=== PATIENT | female | born 1985 | race Caucasian/White ===

== ENCOUNTER 2016-12-26 00:07 | Emergency (ER) | payer BC ==
[~2016-12-26] VITALS: Ht 170.2 cm; Wt 149.7 kg
[~2016-12-26 00:07] MED LIST: BSP5T PO; DICY20TA57 PO; FLUO40CA PO; PRM25T PO
[2016-12-26] MEDS ORDERED: NS IV 1000 ML 1,000 ML IV ONE (00:13)
[2016-12-26] MEDS ORDERED: fentaNYL INJECTION 100 MCG/2 ML AMP IVP STA (00:13)
--- OUTSIDE RECORDS SUMMARY | 2016-12-26 00:13 | XMS REPORT ---
Author Author PADMA MANZANO [facility] eClinicalWorks Address Unknown Phone Unavailable Care Team Providers Care Multi Share Program Coordinator Name Role Phone PADMA MANZANO CP Unavailable Allergies No Known Allergies Problems Problem Type Condition Code Onset Dates Condition Status Problem Family history of diabetes mellitus V18.0 Active Problem Obesity, unspecified 278.00 Active Problem Counseling on substance use and abuse V65.42 Active Problem Nondependent tobacco use disorder 305.1 Active Problem Anxiety state, unspecified 300.00 Active Problem Other general counseling and advice for contraceptive management V25.09 Active Medications No Known Medications Results No Known Results Summary Purpose eClinicalWorks Submission
[2016-12-26] MEDS ORDERED: HYOSCYAMINE 0.125 MG (LEVSIN) TAB SL ONE (00:15)
[2016-12-26] MEDS ORDERED: ONDANSETRON 4 MG/2 ML (SDV) Z0FRAN IVP ONE (00:15)
[2016-12-26 00:37] LABS: BASOPHILS % (AUTO) 0 % (0-10); EOSINOPHILS # (AUTO) 0.1 10^3/uL (0.0-0.3); EOSINOPHILS % (AUTO) 1 % (0-10); LYMPHOCYTES # (AUTO) 1.4 X 10^3 (1.0-4.0); LYMPHOCYTES % (AUTO) 9 % (12-44); MEAN CORPUSCULAR HEMOGLOBIN 26 PG (25-34); MEAN CORPUSCULAR HGB CONC 33 G/DL (32-36); MEAN CORPUSCULAR VOLUME 79 FL (80-99); MONOCYTES # (AUTO) 0.7 X 10^3 (0.0-1.0); MONOCYTES % (AUTO) 5 % (0-12); NEUTROPHILS # (AUTO) 13.2 X 10^3 (1.8-7.8); NEUTROPHILS % (AUTO) 86 % (42-75); PLATELET COUNT 532 10^3/uL (130-400); RED CELL DISTRIBUTION WIDTH 15.1 % (10.0-14.5); WHITE BLOOD COUNT 15.5 10^3/uL (4.3-11.0)
[2016-12-26] MEDS ORDERED: PROMETHAZINE INJ 25 MG/ML (PHENERGAN) AMP IVP STA (00:46)
--- NOTE | 2016-12-26 00:46 | ED General ---
General Chief Complaint: Abdominal/GI Problems Stated Complaint: VOMITING,NAUSEA,DIARRHEA Source of Information: Patient Exam Limitations: No Limitations History of Present Illness Time Seen by Provider: 00:10 Initial Comments Here with report of nausea, vomiting and diarrhea that started at about 830 p.m. last night and has persisted until now. She reports vomiting at least 10 times. She states that she has watery diarrhea. No blood in her vomit or stool. Overall has body aches and abdominal cramping. Timing/Duration: 4-6 Hours Severity: Moderate Associated Systoms: No Chest Pain, No Fever/Chills, Nausea/VomitingNo Weakness Allergies and Home Medications Allergies Coded Allergies: Latex (Verified Allergy, Unknown, 01/28/09) Pertussis Vaccine,Adsorbed (Verified Allergy, Unknown, 01/29/09) Home Medications Buspirone Hcl 5 Mg Tablet 10 MG PO BID (Reported) Dicyclomine Hcl 20 Mg Tablet #14 1 EACH PO QID PRN Prescribed by: RYAN MOORE MD on 09/10/09 1121 Fluoxetine Hcl 40 Mg Capsule 1 EACH PO DAILY (Reported) Promethazine HCl 25 Mg Tablet #12 25 MG PO Q8H PRN PRN NAUSEA/VOMITING Prescribed by: LAVELL MORGAN on 12/26/16 0209 Promethazine Hcl 25 Mg Tablet #14 1 TAB PO QID PRN NAUSEA Prescribed by: RYAN MOORE MD on 09/10/09 1121 Constitutional: see HPINo chills, No fever EENTM: no symptoms reported Respiratory: no symptoms reported Cardiovascular: no symptoms reported Gastrointestinal: see HPI abdominal pain diarrhea nausea vomiting Genitourinary: no symptoms reported Musculoskeletal: see HPI Skin: no symptoms reported All Other Systems Reviewed Negative Unless Noted: Yes Past Rertyvs-Hxbxsa-Owbbpr Hx Patient Social History Alcohol Use: Occasionally Uses Recreational Drug Use: No Smoking Status: Former Smoker Type Used: Cigarettes Recent Foreign Travel: No Contact w/Someone Who Travel: No Recent Hopitalizations: No Surgeries HX Surgeries: Yes (metal plate in Lt.leg when broken) Surgeries: Section Respiratory Hx Respiratory Disorders: No Cardiovascular Hx Cardiac Disorders: No Neurological Hx Neurological Disorders: No Reproductive System Hx Reproductive Disorders: No Genitourinary Hx Genitourinary Disorders: No Gastrointestinal Hx Gastrointestinal Disorders: No Musculoskeletal Hx Musculoskeletal Disorders: No Endocrine Hx Endocrine Disorders: No HEENT HX ENT Disorders: No Cancer Hx Cancer: No Psychosocial Hx Psychiatric Problems: Yes Behavioral Health Disorders: Anxiety, Depression Integumentary HX Skin/Integumentary Disorder: No Blood Transfusions Hx Blood Disorders: No Reviewed Nursing Assessment Reviewed/Agree w Nursing PMH: Yes Physical Exam Vital Signs Vital Sign - Last 12Hours 12/26/16 00:09 Temp 97.6 Pulse 99 Resp 20 B/P 139/100 Pulse Ox 98 O2 Delivery Room Air Capillary Refill : General Appearance: No Apparent Distress WD/WN HEENT: PERRL/EOMI Pharynx Normal Neck: Non Tender Supple Respiratory: Lungs Clear Normal Breath Sounds Cardiovascular: Regular Rate, Rhythm No Murmur Gastrointestinal: Non Tender Soft Back: Normal Inspection No CVA Tenderness No Vertebral Tenderness Extremity: Non Tender No Calf Tenderness Neurologic/Psychiatric: Alert Oriented x3 Skin: Normal Color Warm/Dry Progress/Results/Core Measures Results/Orders Lab Results Laboratory Tests Test 12/26/16 00:22 Range/Units Alanine Aminotransferase (ALT/SGPT) 16 0-55 U/L Albumin 3.9 3.2-4.5 G/DL Alkaline Phosphatase 79 40-136 U/L Anion Gap 15 H 5-14 MMOL/L Aspartate Amino Transf (AST/SGOT) 14 5-34 U/L BUN/Creatinine Ratio 14 Band Neutrophils 2 % Basophils # (Auto) 0.0 0.0-0.1 10^3/uL Basophils (%) (Auto) 0 0-10 % Blood Morphology Comment NORMAL Blood Urea Nitrogen 13 7-18 MG/DL Calcium Level 9.2 8.5-10.1 MG/DL Carbon Dioxide Level 17 L 21-32 MMOL/L Chloride Level 109 H 98-107 MMOL/L Creatinine 0.91 0.60-1.30 MG/DL Eosinophils # (Auto) 0.1 0.0-0.3 10^3/uL Eosinophils (%) (Auto) 1 0-10 % Estimat Glomerular Filtration Rate > 60 Glucose Level 173 H 70-105 MG/DL Hematocrit 39 35-52 % Hemoglobin 12.7 11.5-16.0 G/DL Lymphocytes # (Auto) 1.4 1.0-4.0 X 10^3 Lymphocytes % (Manual) 10 % Lymphocytes (%) (Auto) 9 L 12-44 % Mean Corpuscular Hemoglobin 26 25-34 PG Mean Corpuscular Hemoglobin Concent 33 32-36 G/DL Mean Corpuscular Volume 79 L 80-99 FL Mean Platelet Volume 9.0 7.4-10.4 FL Monocytes # (Auto) 0.7 0.0-1.0 X 10^3 Monocytes % (Manual) 3 % Monocytes (%) (Auto) 5 0-12 % Neutrophils # (Auto) 13.2 H 1.8-7.8 X 10^3 Neutrophils % (Manual) 85 % Neutrophils (%) (Auto) 86 H 42-75 % Platelet Count 532 H 130-400 10^3/uL Potassium Level 4.1 3.6-5.0 MMOL/L Red Blood Count 4.90 4.35-5.85 10^6/uL Red Cell Distribution Width 15.1 H 10.0-14.5 % Sodium Level 141 135-145 MMOL/L Total Bilirubin 0.9 0.1-1.0 MG/DL Total Protein 7.6 6.4-8.2 G/DL White Blood Count 15.5 H 4.3-11.0 10^3/uL My Orders Orders-LAVELL MORGAN MD Saline Lock/Iv-Start (12/26/16 00:13) Ns Iv 1000 Ml (Sodium Chloride 0.9%) (12/26/16 00:13) Ondansetron Injection (Zofran Injectio (12/26/16 00:15) Hyoscyamine Sl Tablet (Levsin Sl Tablet) (12/26/16 00:15) Fentanyl Injection (Sublimaze Injection (12/26/16 00:13) Cbc With Automated Diff (12/26/16 00:13) Comprehensive Metabolic Panel (12/26/16 00:13) Manual Differential (12/26/16 00:22) Promethazine Injection (Phenergan Injec (12/26/16 00:46) Ketorolac Injection (Toradol Injection) (12/26/16 02:06) Medications Given in ED Current Medications Medications Dose Ordered Sig/Nura Route Start Time Stop Time Status Last Admin Dose Admin Hyoscyamine Sulfate 0.125 mg ONCE ONCE SL 12/26/16 00:15 12/26/16 00:16 DC 12/26/16 00:39 0.125 MG Ondansetron HCl 8 mg ONCE ONCE IVP 12/26/16 00:15 12/26/16 00:16 DC 12/26/16 00:39 8 MG Sodium Chloride 1,000 ml @ 0 mls/hr Q0M ONCE IV 12/26/16 00:13 12/26/16 00:15 DC 12/26/16 00:39 1,000 MLS/HR Vital Signs/I&O Vital Sign - Last 12Hours 12/26/16 00:09 Temp 97.6 Pulse 99 Resp 20 B/P 139/100 Pulse Ox 98 O2 Delivery Room Air Progress Note : Progress Note Seen and evaluated. IV, labs, normal saline 1 L bolus, Zofran 8 mg IV, fentanyl 25 g IV and Levsin 0.125 mg by mouth. Monitor patient repeat vomiting noted. Phenergan 25 mg IV. 0200: Improved overall. Toradol 30 mg IV for abdominal wall/muscle pain. Discharged home with return precautions. Patient verbalize understanding instructions and agreement with plan. Departure Impression Impression: Primary Impression: Nausea, vomiting and diarrhea Disposition: HOME, SELF-CARE Condition: Stable Departure-Patient Inst. Decision time for Depature: 02:08 Referrals: LYLY FLORENCE DO (PCP) Primary Care Physician Patient Instructions: Acute Abdomen (Belly Pain), Adult (DC), Diarrhea in Adolescents and Adults, Nausea and Vomiting, Adult Add. Discharge Instructions: All discharge instructions reviewed with patient and/or family. Voiced understanding. Clear liquid diet for 24 hours and then advance as tolerated. Take small sips frequently to prevent dehydration. Take medications as directed. Follow-up with your Dr. today for recheck and further evaluation as needed. Return for worse pain, fever, vomiting, weakness, breathing problems or other concerns as needed. Scripts Promethazine HCl (Promethazine Tablet)25 Mg Adukgs06 Mg PO Q8H PRN NAUSEA/ VOMITING #12 TAB Ref 0 Prov:LAVELL MORGAN MD 12/26/16 LAVELL MORGAN MD Dec 26, 2016 00:46 LAVELL MORGAN MD Dec 26, 2016 00:46
[2016-12-26 00:58] LABS: ALANINE AMINOTRANSFERASE 16 U/L (0-55); ALBUMIN 3.9 G/DL (3.2-4.5); ANION GAP 15 MMOL/L (5-14); ASPARTATE AMINO TRANSFERASE 14 U/L (5-34); BILIRUBIN,TOTAL 0.9 MG/DL (0.1-1.0); BLOOD UREA NITROGEN 13 MG/DL (7-18); BUN/CREATININE RATIO 14; CALCIUM 9.2 MG/DL (8.5-10.1); CARBON DIOXIDE 17 MMOL/L (21-32); CHLORIDE 109 MMOL/L (98-107); CREATININE SERUM 0.91 MG/DL (0.60-1.30); GFR ESTIMATED > 60; GLUCOSE 173 MG/DL (70-105); POTASSIUM 4.1 MMOL/L (3.6-5.0); SODIUM 141 MMOL/L (135-145); TOTAL PROTEIN 7.6 G/DL (6.4-8.2)
[2016-12-26 01:12] LABS: BAND NEUTROPHILS 2 %; LYMPHOCYTES % (MANUAL) 10 %; NEUTROPHILS % (MANUAL) 85 %
[2016-12-26] MEDS ORDERED: KETOROLAC 30 MG/ML VIAL IVP STA (02:06)
[2016-12-26] MEDS ORDERED: PROM25TA14 PO (02:09)
[2016-12-26] MEDS ORDERED: RX-ONDANSETRON 4 MG ODT (ZOFRAN) PPK #4 PO STA (02:10)
[2016-12-26 02:37] VITALS: BP 137/76
== END 2016-12-26 02:37 | disposition home or self-care (01) ==
LOC: EDUNIT# 00:07 → ER 00:09
DX: R11.2 Nausea with vomiting, unspecified (principal); R19.7 Diarrhea, unspecified
CPT/HCPCS: 36415; 80053; 85007; 85027; 96361; 96374; 96375

== ENCOUNTER 2018-03-16 21:11 | Emergency (ER) | payer SELFPAY ==
[~2018-03-16] VITALS: Ht 170.2 cm; Wt 144.2 kg
[~2018-03-16 21:11] MED LIST changes: +PROM25TA14 PO
--- OUTSIDE RECORDS SUMMARY | 2018-03-16 21:15 | XMS REPORT ---
Author Author VIOLETTA SHORT Organization eClinicalWorks Address Unknown Phone Unavailable Care Team Providers Care Borough Coordinator Name Role Phone VIOLETTA SHORT CP Unavailable Allergies No Known Allergies Problems Problem Type Condition Code Onset Dates Condition Status Problem Family history of diabetes mellitus V18.0 Active Problem Obesity, unspecified 278.00 Active Problem Counseling on substance use and abuse V65.42 Active Problem Nondependent tobacco use disorder 305.1 Active Problem Anxiety state, unspecified 300.00 Active Problem Other general counseling and advice for contraceptive management V25.09 Active Medications Medication Code System Code Instructions Start Date End Date Status Dosage Omeprazole [facility] [address]-95 20 MG Orally Once a day May 03, 2015 1 capsule Results No Known Results Summary Purpose eClinicalWorks Submission
--- OUTSIDE RECORDS SUMMARY | 2018-03-16 21:15 | XMS REPORT ---
Author Author PADMA MANZANO [facility] eClinicalWorks Address Unknown Phone Unavailable Care Team Providers Care Primary School Teacher Name Role Phone PADMA MANZANO CP Unavailable [...]
--- OUTSIDE RECORDS SUMMARY | 2018-03-16 21:16 | XMS REPORT ---
Author Author VIOLETTA SHORT [facility] Address [address] [place] [address] Care Team Providers Care Tv News Director Name Role Phone VIOLETTA SHORT Unavailable PROBLEMS Type Condition ICD9-CM Code [id number] Code Onset Dates Condition Status SNOMED Code Problem Anemia, unspecified type D64.9 Active 851101872 Problem Acquired hypothyroidism E03.9 Active 061966474 Problem Fatigue, unspecified type R53.83 Active 80326764 Problem Other seasonal allergic rhinitis J30.2 Active 141057052 Problem Blood pressure elevated without history of HTN R03.0 Active 898977527 Problem Depression with anxiety F41.8 Active 846323694 Problem Long-term use of high-risk medication Z79.899 Active 604644803 Problem Gastroesophageal reflux disease without esophagitis K21.9 Active 726864013 ALLERGIES Unknown Allergies SOCIAL HISTORY No smoking Hx information available PLAN OF CARE VITAL SIGNS MEDICATIONS Medication Instructions Dosage Frequency Start Date End Date Duration Status BusPIRone HCl 10 mg Orally Twice a day as needed 1 tablet 30 days Active Fluoxetine HCl 40 mg Orally 2 times a day 1 capsule 12h 30 days Active RESULTS No Results PROCEDURES No Known procedures IMMUNIZATIONS No Known Immunizations
--- OUTSIDE RECORDS SUMMARY | 2018-03-16 21:16 | XMS REPORT ---
Author Author VIOLETTA SHORT Organization eClinicalWorks Address Unknown Phone Unavailable Care Team Providers Care Pigment Supplier Name Role Phone VIOLETTA SHORT CP Unavailable Allergies, Adverse Reactions, Alerts Substance Reaction Event Type N.K.D.A. Info Not Available Non Drug Allergy Problems Problem Type Condition ICD-9 Code Onset Dates Condition Status Problem Family history of diabetes mellitus V18.0 Active Problem Obesity, unspecified 278.00 Active Problem Counseling on substance use and abuse V65.42 Active Problem Nondependent tobacco use disorder 305.1 Active Assessment Lumbar back pain 724.2 Active Problem Anxiety state, unspecified 300.00 Active Problem Other general counseling and advice for contraceptive management V25.09 Active Medications Medication Code System Code Instructions Start Date End Date Status Dosage Omeprazole [facility] [address]-52 20 MG Orally Once a day May 03, 2015 1 capsule Baclofen [facility] [address]-30 10 MG Orally Once a day at hs May 21, 2015 Jul 26, 2015 1 tablet with food or milk Diclofenac Sodium [facility] [address]-99 50 MG Orally Twice a day May 21, 2015 Aug 25, 2015 1 tablet Fluoxetine HCl [facility] [address]-04 40 MG Orally 2 times a day 1 capsule BusPIRone HCl [facility] [address]-10 10 MG Orally Twice a day as needed 1 tablet Procedures Procedure Coding System Code Date Office Visit, Est Pt., Level 3 CPT-4 71698 Jun 26, 2015 Vital Signs Date/Time: Jun 26, 2015 Temperature 97.8 F Weight 304.1 lbs Height 67 in BMI 47.62 Index Blood Pressure Diastolic 78 mmHg Blood Pressure Systolic 126 mmHg Cardiac Monitoring Heart Rate 84 bpm Results No Known Results Summary Purpose eClinicalWorks Submission
--- OUTSIDE RECORDS SUMMARY | 2018-03-16 21:16 | XMS REPORT ---
Author Author SELIN HIDALGO Organization [facility] Address [address] [place] [address] Care Team Providers Care Aircraft Systems Repairer Name Role Phone SELIN HIDALGO Unavailable PROBLEMS Type Condition ICD9-CM Code [id number] Code Onset Dates Condition Status SNOMED Code Problem Acquired hypothyroidism E03.9 Active 147008571 Problem Depression with anxiety F41.8 Active 145978335 Problem Anemia, unspecified type D64.9 Active 569960760 Problem Acute bilateral low back pain with right-sided sciatica M54.41 Active 567478752 Problem Fatigue, unspecified type R53.83 Active 74274976 Problem Gastroesophageal reflux disease without esophagitis K21.9 Active 336211683 Problem Blood pressure elevated without history of HTN R03.0 Active 060952357 Problem Other seasonal allergic rhinitis J30.2 Active 347333950 Problem Long-term use of high-risk medication Z79.899 Active 723734036 ALLERGIES No Known Allergies ENCOUNTERS Encounter Location Date Diagnosis [place] [id number] [place] [address] 98109- 1451 Jan, BMI 50.0-59.9, adult Z68.43 ; Depression with anxiety F41.8 ; Acquired hypothyroidism E03.9 and Acute bilateral low back pain with right- sided sciatica M54.41 [place] [id number] [place] [address] 54776- 4024 Dec, [place] [id number] [place] [address] 57664- 3865 Dec, Bilateral low back pain, unspecified chronicity, with sciatica presence unspecified M54.5 [place] [id number] [place] [address] 16905- 0247 Dec, Bilateral low back pain, unspecified chronicity, with sciatica presence unspecified M54.5 and Depression with anxiety F41.8 [facility] [id number] [place] [address] 38950- 8781 13 Dec, 2017 Depression with anxiety F41.8 [facility] [id number] [place] [address] 80703 -6017 14 Oct, 2017 BMI 50.0-59.9, adult Z68.43 ; Other viral agents as the cause of diseases classified elsewhere B97.89 and Acute upper respiratory infection, unspecified J06.9 [place] [id number] [place] [address] 80640- 6769 Aug, Acquired hypothyroidism E03.9 and Anemia, unspecified type D64.9 [facility] [id number] [place] [address] 63991 -0186 Jul, Acute nonseasonal allergic rhinitis due to other allergen J30.89 [place] [id number] [place] [address] 77648- 0998 Jun, [place] [id number] [place] [address] 09444- 9390 Jun, Acquired hypothyroidism E03.9 [place] [id number] [place] [address] 87869- 0067 Jun, Acquired hypothyroidism E03.9 and Fatigue, unspecified type R53.83 [place] [id number] [place] [address] 42655- 5583 Jun, Depression with anxiety F41.8 ; Gastroesophageal reflux disease without esophagitis K21.9 and Fatigue, unspecified type R53.83 [place] [id number] [place] [address] 49688- 9455 May, [place] [id number] [place] [address] 05384- 4756 Dec, [place] [id number] [place] [address] 17957- 9561 Dec, Depression with anxiety F41.8 and Gastroesophageal reflux disease without esophagitis K21.9 [facility] [id number] [place] [address] 36661- 7850 Nov, Depression with anxiety F41.8 [facility] [id number] [place] [address] 86367- 0629 Sep, Acute maxillary sinusitis, recurrence not specified J01.00 [facility] [address] 71497- 1626 Jun, [facility] [id number] [place] [address] [id number] Jun, Dental examination Z01.20 and Dental caries K02.9 [place] [address] 05120- 0668 Apr, Depression with anxiety F41.8 ; Other seasonal allergic rhinitis J30.2 ; Gastroesophageal reflux disease without esophagitis K21.9 and Long-term use of high-risk medication Z79.899 [facility] [id number] [place] [address] 14746 -5035 Apr, Acute otitis externa of right ear, unspecified type H60.501 and Foreign body of ear, left, initial encounter T16.2XXA [place] [id number] [place] [address] 94080- 0157 March, Acute non-recurrent maxillary sinusitis J01.00 and Depression with anxiety F41.8 [facility] [id number] [place] [address] 79988- 5740 Dec, [facility] [id number] [place] [address] 64179- 1011 Oct, Depression with anxiety F41.8 ; Blood pressure elevated without history of HTN R03.0 and Gastroesophageal reflux disease without esophagitis K21.9 [facility] [id number] [place] [address] 93580- 4917 Oct, [facility] [address] [place] [address]- 1178 Sep, Upper respiratory disease J39.9 [facility] [id number] [address] 2886 Aug, [facility] [address] [facility] [id number], [place] [address] 3659 Jun, Lumbar back pain 724.2 [facility] [id number] [place] [address] 76984- 4418 May, Low back strain 847.2 [facility] [address] [facility] [id number] [place] [address] 93235- 1218 May, Dysthymia 300.4 and Heart burn 787.1 [facility] [address] [facility] [id number], [place] [address]- 7365 Apr, [facility] [id number] [place] [address] 06770- 2532 Jan, [facility] [address] [id number] [address] 1510 Jan, [facility] [address] [place] [address] 92117- 2306 Dec, [facility] [address] [id number] [address]- 0113 Dec, [facility] [id number] [address]- 9196 Dec, [facility] [address] [facility] [id number], [place] [address]- 3157 Dec, [facility] [address] [facility] [id number] 7119 Sep, [facility] [address] [facility] [id number], [place] [address]- 4945 Sep, [facility] [address] [facility] [id number], [place] [address] 1700 Aug, [facility] [place] [facility] [address] [id number] [place] [address]- 0974 23 Aug, 2014 [facility] [place] [facility] [address] [id number] [place] [address]- 2588 16 Aug, 2014 [facility] [place] [facility] [address] [id number] [place] [address] 16 Aug, 2014 [facility] [place] [facility] [address] [id number] [place] [address]- 5558 15 Aug, 2014 [facility] [place] [facility] [address] [id number] [place] [address]- 6051 15 Aug, 2014 [facility] [place] [facility] [address] [id number] [place] [address]- 6611 17 Jul, 2014 [facility] [place] [facility] [address] [id number] [place] [address]- 1448 17 Jul, 2014 [facility] [place] [facility] [address] [id number] [place] [address]- 7281 08 Jul, 2014 [facility] [place] [facility] [address] [id number] [place] [address]- 2846 08 Jul, 2014 [facility] [place] [facility] [address] [id number] [place] [address]- 9941 Jun, [facility] [place] [facility] [address] [id number] [place] [address]- 7803 Jun, [facility] [place] [facility] [address] [id number] [place] [address]- 9605 Jun, [facility] [place] [facility] [address] [id number] [place] [address]- 9049 Jun, [facility] [place] [facility] [address] [id number] [place] [address]- 8663 Apr, [facility] [place] [facility] [address] [id number] [place] [address]- 3295 Apr, [facility] [place] [facility] [address] [id number], [place] [address]- 5664 March, [facility] [address] [id number] [place] [address]- 5374 March, [facility] [place] [facility] [address] [id number] [place] [address]- 6712 Jan, [facility] [place] [facility] [address] [id number] [place] [address]- 9906 Jan, [facility] [place] [facility] [address] [id number] [place] [address]- 8431 Dec, [facility] [place] [facility] [address] [id number] [place] [address]- 8945 Dec, [facility] [place] [facility] [address] [id number] [place] [address]- 7049 Dec, [facility] [place] [facility] [address] [facility] [id number] [place] [address]- 3214 Dec, [facility] [place] [facility] [address] [id number] [place] [address]- 8456 Oct, [facility] [place] [facility] [address] [id number] [place] [address]- 5961 Oct, [facility] [place] [facility] [address] [facility] [id number] [place] [address]- 7587 Oct, [facility] [place] [facility] [address] [facility] [id number], [place] [address]- 6227 Oct, [facility] [place] [facility] [address] [id number], [place] [address]- 0848 Aug, [facility] [place] [facility] [address] [id number] [place] [address]- 9890 Aug, [facility] [place] [facility] [address] [facility] [id number], [place] [address]- 5857 Jun, [facility] [place] [facility] [address] [facility] [id number], [place] [address]- 6993 Jun, [facility] [place] [facility] [address] [id number] [place] [address]- 2505 Jun, [facility] [place] [facility] [address] [id number] [place] [address]- 6193 May, [facility] [place] [facility] [address] [id number] [place] [address]- 2777 March, [facility] [place] [facility] [address] [id number] [place] [address]- 8994 March, [facility] [place] [facility] [address] [id number] [place] [address]- 0930 Oct, [facility] [place] [facility] [address] [id number] [place] [address]- 8384 Oct, [facility] [place] [facility] [address] [id number] [place] [address]- 6503 Oct, [facility] [place] [facility] [address] [id number] [place] [address]- 8804 Oct, [facility] [place] [facility] [address] [id number] [place] [address]- 0279 Sep, [facility] [place] [facility] [address] [id number] [place] [address]- 7943 Sep, [facility] [place] [facility] [address] [id number] [place] [address]- 5712 Aug, [facility] [place] [facility] [address] [id number] [place] [address]- 6436 Aug, [facility] [place] [facility] [address] [id number] [place] [address]- 4526 Jun, [facility] [place] [facility] [address] [id number] [place] [address]- 5204 Jun, [facility] [place] [facility] [address] [id number] [place] [address]- 3238 Dec, [facility] [place] [facility] [address] [id number] [place] [address]- 9206 Nov, [facility] [address] [facility] [id number], [place] [address]- 2546 Oct, [facility] [address] [facility] [id number], [place] [address] 2546 Aug, [facility] [address] [facility] [id number], [place] [address]- 2546 Aug, [facility] [address] [facility] [id number], [place] [address]- 2546 Dec, IMMUNIZATIONS No Known Immunizations SOCIAL HISTORY Never Assessed REASON FOR VISIT Stuffy tingling nose, facial pain started Thursday Celina PLAN OF CARE VITAL SIGNS Height 67 in 2017-07-22 Weight 318.0 lbs 2017-07-22 Temperature 98.1 degrees Fahrenheit 2017-07-22 Heart Rate 84 bpm 2017-07-22 Respiratory Rate 20 2017-07-22 BMI 49.80 kg/m2 2017-07-22 Blood pressure systolic 128 mmHg 2017-07-22 Blood pressure diastolic 76 mmHg 2017-07-22 MEDICATIONS Medication Instructions Dosage Frequency Start Date End Date Duration Status Omeprazole 20 mg Orally Once a day 1 capsule 24h Active Multivitamin Adults - Active Zyrtec Allergy 10 MG Orally Once a day 1 tablet 24h Active Fluoxetine HCl 40 mg Orally 2 times a day 1 capsule 12h 30 days Active PredniSONE 20 mg Orally Once a day 2 tablets 24h 20 Jul, 2017 25 Jul, 2017 05 days Active Vitamin C 250 MG Orally Once a day 1 tablet 24h Jun, 30 day(s) Active Iron 325 (65 Fe) MG Orally Once a day 1 tablet 24h Jun, 30 day( s) Active Levothyroxine Sodium 25 MCG Orally Once a day 1 tablet on an empty stomach in the morning 24h Jun, 30 day(s) Active BusPIRone HCl 10 mg Orally Twice a day as needed 1 tablet 30 days Active RESULTS No Results PROCEDURES No Known procedures INSTRUCTIONS MEDICATIONS ADMINISTERED No Known Medications MEDICAL (GENERAL) HISTORY Type Description Date Medical History anxiety Medical History dysthymia (depressive neurosis) primary Surgical History section 2008 Surgical History orthopedic surgery-fx of left leg, pt has metal plate 2005 Hospitalization History Hospitalization for surgery only
--- OUTSIDE RECORDS SUMMARY | 2018-03-16 21:17 | XMS REPORT ---
Author Author VIOLETTA SHORT Organization [employer] Address Unknown Phone Unavailable Care Team Providers Care Canvas Cutter Name Role Phone VIOLETTA SHORT CP Unavailable Allergies, Adverse Reactions, Alerts Substance Reaction Event Type N.K.D.A. Info Not Available Non Drug Allergy Problems Problem Type Condition Code Onset Dates Condition Status Problem Long-term use of high-risk medication Z79.899 Active Problem Depression with anxiety F41.8 Active Problem Other seasonal allergic rhinitis J30.2 Active Assessment Acute maxillary sinusitis, recurrence not specified J01.00 Active Problem Blood pressure elevated without history of HTN R03.0 Active Problem Gastroesophageal reflux disease without esophagitis K21.9 Active Medications Medication Code System Code Instructions Start Date End Date Status Dosage Azithromycin [facility] [address]-39 250 MG Orally Once a day Sep 23, 2016 Sep 30, 2016 2 tablets on the first day, then 1 tablet daily for 6 days Benzonatate [facility] [address]-71 100 MG Orally Three times a day prn Sep 23, 2016 Sep 30, 2016 1 capsule as needed Fluoxetine HCl [facility] [address]-80 40 mg Orally 2 times a day 1 capsule BusPIRone HCl [facility] [address]-35 10 MG Orally Twice a day as needed 1 tablet Flonase [facility] [address]-65 50 MCG/ACT Nasally Once a day March 19, 2016 1 spray in each nostril Omeprazole [facility] [address]-80 20 mg Orally Once a day May 03, 2015 1 capsule Procedures Procedure Coding System Code Date Office Visit, Est Pt., Level 3 CPT-4 10210 Sep 23, 2016 Vital Signs Date/Time: Sep 23, 2016 Cardiac Monitoring Heart Rate 90 bpm Weight 318.5 lbs Height 67 in BMI 49.88 Index Blood Pressure Diastolic 74 mmHg Blood Pressure Systolic 138 mmHg Results No Known Results Summary Purpose [employer] Submission
--- OUTSIDE RECORDS SUMMARY | 2018-03-16 21:17 | XMS REPORT ---
Author Author PADMA MANZANO [facility] [employer] Address Unknown Phone Unavailable Care Team Providers Care Tai Chi Instructor Name Role Phone PADMA MANZANO CP Unavailable Allergies, Adverse Reactions, Alerts Substance Reaction Event Type N.K.D.A. Info Not Available Non Drug Allergy Problems Problem Type Condition Code Onset Dates Condition Status Problem Family history of diabetes mellitus V18.0 Active Problem Obesity, unspecified 278.00 Active Problem Counseling on substance use and abuse V65.42 Active Problem Nondependent tobacco use disorder 305.1 Active Assessment Upper respiratory disease J39.9 Active Problem Anxiety state, unspecified 300.00 Active Problem Other general counseling and advice for contraceptive management V25.09 Active Medications Medication Code System Code Instructions Start Date End Date Status Dosage Afrin 12 Hour [facility] 53476-38567 0.05 % Nasally Twice a day 2 drops as needed Fluoxetine HCl [facility] [address]-47 40 MG Orally 2 times a day 1 capsule Zithromax Z-William [facility] [address]-18 250 MG Orally Once a day Sep 20, 2015 Sep 25, 2015 2 tablets on the first day, then 1 tablet daily for 4 days Tylenol Severe Allergy [facility] [address]-37 12.5-500 MG Orally every 6 hrs 2 tablets as needed BusPIRone HCl [facility] [address]-11 10 MG Orally Twice a day as needed 1 tablet Procedures Procedure Coding System Code Date Office Visit, Est Pt., Level 3 CPT-4 52355 Sep 20, 2015 Vital Signs Date/Time: Sep 20, 2015 Temperature 97.0 F Weight 306 lbs Height 67 in BMI 47.92 Index Blood Pressure Diastolic 78 mmHg Blood Pressure Systolic 110 mmHg Cardiac Monitoring Heart Rate 84 bpm Results No Known Results Summary Purpose [employer] Submission
--- OUTSIDE RECORDS SUMMARY | 2018-03-16 21:17 | XMS REPORT ---
Author Author VIOLETTA SHORT Organization [facility] Address [address] [place] [address] Care Team Providers Care Tax Senior Associate Name Role Phone VIOLETTA SHORT Unavailable PROBLEMS Type Condition ICD9-CM Code FRV76-BI Code Onset Dates Condition Status SNOMED Code Problem Anemia, unspecified type D64.9 Active 242015107 Problem Acquired hypothyroidism E03.9 Active 238244272 Problem Fatigue, unspecified type R53.83 Active 76935864 Problem Other seasonal allergic rhinitis J30.2 Active 051691418 Problem Blood pressure elevated without history of HTN R03.0 Active 983421931 Problem Depression with anxiety F41.8 Active 713406503 Problem Long-term use of high-risk medication Z79.899 Active 662872638 Problem Gastroesophageal reflux disease without esophagitis K21.9 Active 359821655 ALLERGIES No Information ENCOUNTERS Encounter Location Date Diagnosis [place] [id number] [place] [address] 62852- 6614 24 Jan, 2018 [facility] [id number] [place] [address] 34224- 1418 16 Dec, 2017 [facility] [id number] [place] [address] 16547- 1806 16 Dec, 2017 Bilateral low back pain, unspecified chronicity, with sciatica presence unspecified M54.5 [facility] [id number] [place] [address] 33895- 8732 14 Dec, 2017 Bilateral low back pain, unspecified chronicity, with sciatica presence unspecified M54.5 and Depression with anxiety F41.8 [facility] [id number] [place] [address] 24619- 6867 13 Dec, 2017 Depression with anxiety F41.8 [facility] [id number] [place] [address] 05122 -4008 Oct, BMI 50.0-59.9, adult Z68.43 ; Other viral agents as the cause of diseases classified elsewhere B97.89 and Acute upper respiratory infection, unspecified J06.9 [place] [id number] [place] [address] 06497- 8033 Aug, Acquired hypothyroidism E03.9 and Anemia, unspecified type D64.9 [facility] [id number] [place] [address] 68253 -1007 Jul, Acute nonseasonal allergic rhinitis due to other allergen J30.89 [place] [id number] [place] [address] 43471- 2974 Jun, [place] [id number] [place] [address] 40544- 2275 Jun, Acquired hypothyroidism E03.9 [place] [id number] [place] [address] 19093- 8314 Jun, Acquired hypothyroidism E03.9 and Fatigue, unspecified type R53.83 [place] [id number] [place] [address] 70204- 1432 Jun, Depression with anxiety F41.8 ; Gastroesophageal reflux disease without esophagitis K21.9 and Fatigue, unspecified type R53.83 [place] [id number] [place] [address] 52765- 9874 May, [place] [id number] [place] [address] 26689- 8773 Dec, [place] [id number] [place] [address] 51168- 3476 Dec, Depression with anxiety F41.8 and Gastroesophageal reflux disease without esophagitis K21.9 [place] [id number] [place] [address] 40336- 3119 Nov, Depression with anxiety F41.8 [place] [id number] [place] [address] 03859- 8878 Sep, Acute maxillary sinusitis, recurrence not specified J01.00 [facility] [address] 15506- 1230 Jun, [facility] [address] [id number] Jun, Dental examination Z01.20 and Dental caries K02.9 [facility] [address] 89140- 2808 Apr, Depression with anxiety F41.8 ; Other seasonal allergic rhinitis J30.2 ; Gastroesophageal reflux disease without esophagitis K21.9 and Long-term use of high-risk medication Z79.899 [facility] [address] 07884 -8300 Apr, Acute otitis externa of right ear, unspecified type H60.501 and Foreign body of ear, left, initial encounter T16.2XXA [facility] [address] 22088- 3479 March, Acute non-recurrent maxillary sinusitis J01.00 and Depression with anxiety F41.8 [place] [id number] [place] [address] 32202- 5118 Dec, [place] [address] 07484- 1525 Oct, Depression with anxiety F41.8 ; Blood pressure elevated without history of HTN R03.0 and Gastroesophageal reflux disease without esophagitis K21.9 [facility] [address] 17187- 3365 Oct, [place] [address] 50954- 3290 Sep, Upper respiratory disease J39.9 [place] [address] 18986- 7969 Aug, [facility] [address] [id number] [place] [address] 6275 Jun, Lumbar [facility] pain [facility]24.2 [facility] [address] [id number] [place] [address] 4769 May, Low back strain 847.2 [facility] [address] [id number] [place] [address] 9754 May, Dysthymia 300.4 and Heart burn 787.1 [facility] [address] [id number] [place] [address] 4404 Apr, [facility] [address] [id number] [place] [address]- 2928 Jan, [facility] [address] [id number] [place] [address]- 0798 Jan, [facility] [address] [id number] [place] [address]- 3598 Dec, [facility] [address] [id number] [place] [address]- 7768 Dec, [facility] [address] [id number] [place] [address]- 4186 Dec, [facility] [address] [facility] [id number] [place] [address]- 2341 Dec, [facility] [address] [id number] [place] [address]- 4684 Sep, [facility] [address] [id number] [place] [address] 1201 Sep, [facility] [address] [id number] [place] [address] Aug, [facility] [address] [id number] [place] [address] Aug, [facility] [address] [id number] [place] [address]- 7113 16 Aug, 2014 [facility] [place] [facility] [address] [id number] [place] [address]- 6785 16 Aug, 2014 [facility] [place] [facility] [address] [id number] [place] [address]- 5720 15 Aug, 2014 [facility] [place] [facility] [address] [id number] [place] [address]- 4446 15 Aug, 2014 [facility] [place] [facility] [address] [id number] [place] [address]- 9964 17 Jul, 2014 [facility] [place] [facility] [address] [id number] [place] [address]- 4582 17 Jul, 2014 [facility] [place] [facility] [address] [id number] [place] [address]- 8715 08 Jul, 2014 [facility] [place] [facility] [address] [id number] [place] [address]- 8987 Jul, [facility] [place] [facility] [address] [id number] [place] [address]- 1100 Jun, [facility] [place] [facility] [address] [id number] [place] [address]- 6188 Jun, [facility] [place] [facility] [address] [id number] [place] [address]- 5258 Jun, [facility] [place] [facility] [address] [id number] [place] [address]- 4812 Jun, [facility] [place] [facility] [address] [id number] [place] [address]- 5736 Apr, [facility] [place] [facility] [address] [id number] [place] [address]- 1134 Apr, [facility] [place] [facility] [address] [id number] [place] [address]- 7490 March, [facility] [place] [facility] [address] [id number] [place] [address]- 1428 March, [facility] [place] [facility] [address] [id number] [place] [address]- 8790 Jan, [facility] [place] [facility] [address] [id number] [place] [address]- 3595 Jan, [facility] [place] [facility] [address] [id number] [place] [address]- 6284 Dec, [facility] [place] [facility] [address] [id number] [place] [address]- 9563 Dec, [facility] [place] [facility] [address] [id number] [place] [address]- 4591 Dec, [facility] [place] [facility] [address] [id number] [place] [address]- 9896 Dec, [facility] [place] [facility] [address] [id number] [place] [address]- 8955 Oct, [facility] [place] [facility] [address] [id number] [place] [address]- 2509 Oct, [facility] [place] [facility] [address] [id number] [place] [address]- 7337 Oct, [facility] [place] [facility] [address] [id number] [place] [address]- 2319 Oct, [facility] [place] [facility] [address] [id number] [place] [address]- 1351 Aug, [facility] [place] [facility] [address] [id number] [place] [address]- 2697 Aug, [facility] [place] [facility] [address] [id number] [place] [address]- 3793 Jun, [facility] [place] [facility] [address] [id number] [place] [address]- 2169 Jun, [facility] [place] [facility] [address] [id number] [place] [address]- 8918 Jun, [facility] [place] [facility] [address] [id number] [place] [address]- 5679 May, [facility] [place] [facility] [address] [id number] [place] [address] 2541 March, [facility] [address] [id number] [place] [address]- 8396 March, [facility] [address] [id number] [place] [address]- 2546 Oct, [facility] [place] [facility] [address] [id number] [place] [address] 2546 Oct, [facility] [address] [id number] [place] [address]- 2544 Oct, [facility] [place] [facility] [address] [id number] [place] [address]- 5096 Oct, [facility] [address] [id number] [place] [address]- 4899 Sep, [facility] [address] [id number] [place] [address]- 1274 Sep, [facility] [address] [id number] [place] [address]- 2836 Aug, [facility] [address] [id number] [place] [address]- 3233 Aug, [facility] [address] [id number] [place] [address]- 8086 Jun, [facility] [place] [facility] [address] [id number] [place] [address]- 2546 Jun, [facility] [place] [facility] [address] [id number] [place] [address]- 9893 Dec, [facility] [place] [facility] [address] [id number] [place] [address]- 2546 Nov, [facility] [place] [facility] [address] [id number] [place] [address]- 2546 Oct, [facility] [place] [facility] [address] [id number] [place] [address]- 9964 Aug, [facility] [address] [facility] [id number] [place] [address]- 3196 Aug, [facility] [address] [facility] [id number] [place] [address]- 8338 10 Dec, 2010 IMMUNIZATIONS No Known Immunizations SOCIAL HISTORY Never Assessed REASON FOR VISIT Medication refill request PLAN OF CARE VITAL SIGNS MEDICATIONS Medication Instructions Dosage Frequency Start Date End Date Duration Status BusPIRone HCl 10 mg Orally Twice a day as needed 1 tablet 30 Active RESULTS No Results PROCEDURES No Known procedures INSTRUCTIONS MEDICATIONS ADMINISTERED No Known Medications MEDICAL (GENERAL) HISTORY Type Description Date Medical History anxiety Medical History dysthymia (depressive neurosis) primary Surgical History section 2008 Surgical History orthopedic surgery-fx of left leg, pt has metal plate 2005 Hospitalization History Hospitalization for surgery only
--- OUTSIDE RECORDS SUMMARY | 2018-03-16 21:17 | XMS REPORT ---
Author Author VIOLETTA SHORT Organization [facility] Address [address] [place] [address] Care Team Providers Care Hammer Repairer Name Role Phone VIOLETTA SHORT Unavailable PROBLEMS Type Condition ICD9-CM Code LAP71-PB Code Onset Dates Condition Status SNOMED Code Problem Acquired hypothyroidism E03.9 Active 082566965 Problem Depression with anxiety F41.8 Active 682658059 Problem Anemia, unspecified type D64.9 Active 175252492 Problem Acute bilateral low back pain with right-sided sciatica M54.41 Active 775675851 Problem Fatigue, unspecified type R53.83 Active 74320624 Problem Gastroesophageal reflux disease without esophagitis K21.9 Active 099740753 Problem Blood pressure elevated without history of HTN R03.0 Active 115774799 Problem Other seasonal allergic rhinitis J30.2 Active 940650956 Problem Long-term use of high-risk medication Z79.899 Active 774867563 ALLERGIES No Known Allergies ENCOUNTERS Encounter Location Date Diagnosis [place] [id number] [place] [address] 28844- 6789 24 Jan, 2018 BMI 50.0-59.9, adult Z68.43 ; Depression with anxiety F41.8 ; Acquired hypothyroidism E03.9 and Acute bilateral low back pain with right- sided sciatica M54.41 [facility] [id number] [place] [address] 06212- 6436 Dec, [place] [id number] [place] [address] 14530- 3306 16 Dec, 2017 Bilateral low back pain, unspecified chronicity, with sciatica presence unspecified M54.5 [place] [id number] [place] [address] 14915- 7008 14 Dec, 2017 Bilateral low back pain, unspecified chronicity, with sciatica presence unspecified M54.5 and Depression with anxiety F41.8 [facility] [id number] [place] [address] 22158- 1901 13 Dec, 2017 Depression with anxiety F41.8 [facility] [id number] [place] [address] 75684 -9166 14 Oct, 2017 BMI 50.0-59.9, adult Z68.43 ; Other viral agents as the cause of diseases classified elsewhere B97.89 and Acute upper respiratory infection, unspecified J06.9 [place] [id number] [place] [address] 55290- 3117 Aug, Acquired hypothyroidism E03.9 and Anemia, unspecified type D64.9 [facility] [id number] [place] [address] 78740 -5110 Jul, Acute nonseasonal allergic rhinitis due to other allergen J30.89 [place] [id number] [place] [address] 78587- 2891 Jun, [place] [id number] [place] [address] 25015- 1161 Jun, Acquired hypothyroidism E03.9 [place] [id number] [place] [address] 93579- 2184 Jun, Acquired hypothyroidism E03.9 and Fatigue, unspecified type R53.83 [place] [id number] [place] [address] 71181- 5690 Jun, Depression with anxiety F41.8 ; Gastroesophageal reflux disease without esophagitis K21.9 and Fatigue, unspecified type R53.83 [place] [id number] [place] [address] 37463- 6037 May, [place] [id number] [place] [address] 61063- 8786 Dec, [place] [address] 34240- 7623 Dec, Depression with anxiety F41.8 and Gastroesophageal reflux disease without esophagitis K21.9 [place] [id number] [place] [address] 97222- 2572 Nov, Depression with anxiety F41.8 [facility] [id number] [place] [address] 64785- 9371 Sep, Acute maxillary sinusitis, recurrence not specified J01.00 [place] [address] 92877- 0461 Jun, [facility] [address] [id number] Jun, Dental examination Z01.20 and Dental caries K02.9 [place] [address] 03957- 9650 Apr, Depression with anxiety F41.8 ; Other seasonal allergic rhinitis J30.2 ; Gastroesophageal reflux disease without esophagitis K21.9 and Long-term use of high-risk medication Z79.899 [facility] [id number] [place] [address] 97063 -9357 Apr, Acute otitis externa of right ear, unspecified type H60.501 and Foreign body of ear, left, initial encounter T16.2XXA [place] [id number] [place] [address] 22932- 6116 March, Acute non-recurrent maxillary sinusitis J01.00 and Depression with anxiety F41.8 [place] [id number] [place] [address] 06940- 6446 Dec, [place] [address] 99604- 0270 Oct, Depression with anxiety F41.8 ; Blood pressure elevated without history of HTN R03.0 and Gastroesophageal reflux disease without esophagitis K21.9 [facility] [id number] [place] [address] 18369- 3829 Oct, [place] [address] [id number] [place] [address] 8666 Sep, Upper respiratory disease J39.9 [facility] [address] [id number] [place] [address] 5250 Aug, [facility] [address] [id number] [place] [address] 4049 Jun, Lumbar back pain 724.2 [facility] [id number] [place] [address] 81551- 1787 May, Low back strain 847.2 [facility] [id number] [place] [address] 93831- 9651 May, Dysthymia 300.4 and Heart burn 787.1 [facility] [address] [facility] [id number] [place] [address]- 2337 Apr, [facility] [address] [id number] [place] [address] 0759 Jan, [facility] [address] [facility] [id number] [place] [address]- 3002 Jan, [facility] [address] [facility] [id number] [place] [address]- 0963 Dec, [facility] [address] [facility] [id number] [place] [address]- 9390 Dec, [facility] [address] [id number] [place] [address]- 9544 Dec, [facility] [address] [facility] [id number] [place] [address]- 7899 Dec, [facility] [address] [facility] [id number] [place] [address]- 4826 Sep, [facility] [address] [id number] [place] [address]- 2190 Sep, [facility] [address] [id number] [place] [address] 1929 Aug, [facility] [place] [facility] [address] [id number] [place] [address]- 5846 23 Aug, 2014 [facility] [place] [facility] [address] [id number] [place] [address]- 5504 16 Aug, 2014 [facility] [place] [facility] [address] [id number] [place] [address]- 4216 16 Aug, 2014 [facility] [place] [facility] [address] [id number] [place] [address]- 9737 15 Aug, 2014 [facility] [place] [facility] [address] [id number] [place] [address]- 3163 15 Aug, 2014 [facility] [place] [facility] [address] [id number] [place] [address]- 4215 17 Jul, 2014 [facility] [place] [facility] [address] [id number] [place] [address]- 7861 17 Jul, 2014 [facility] [place] [facility] [address] [id number] [place] [address]- 0949 08 Jul, 2014 [facility] [place] [facility] [address] [id number] [place] [address]- 3699 08 Jul, 2014 [facility] [place] [facility] [address] [id number] [place] [address]- 6876 Jun, [facility] [place] [facility] [address] [id number] [place] [address]- 6664 Jun, [facility] [place] [facility] [address] [id number] [place] [address]- 2085 Jun, [facility] [place] [facility] [address] [id number] [place] [address]- 9350 Jun, [facility] [place] [facility] [address] [id number] [place] [address]- 3906 Apr, [facility] [place] [facility] [address] [id number] [place] [address]- 6756 Apr, [facility] [place] [facility] [address] [id number] [place] [address]- 2019 March, [facility] [address] [id number] [place] [address]- 1301 March, [facility] [address] [id number] [place] [address]- 0878 Jan, [facility] [address] [id number] [place] [address]- 8163 Jan, [facility] [address] [id number] [place] [address]- 1323 Dec, [facility] [address] [id number] [place] [address]- 7045 Dec, [facility] [address] [id number] [place] [address]- 5189 Dec, [facility] [address] [id number] [place] [address]- 5487 Dec, [facility] [address] [id number] [place] [address]67 Oct, [facility] [address] [id number] [place] [address]- 6720 Oct, [facility] [address] [id number] [place] [address]- 2071 Oct, [facility] [place] [facility] [address] [id number] [place] [address]- 6299 Oct, [facility] [address] [id number] [place] [address]- 4820 Aug, [facility] [place] [facility] [address] [id number] [place] [address]- 2544 Aug, [facility] [place] [facility] [address] [id number] [place] [address]- 2546 Jun, [facility] [address] [id number] [place] [address]- 3367 Jun, [facility] [place] [facility] [address] [id number] [place] [address]- 1017 Jun, [facility] [place] [facility] [address] [id number] [place] [address]- 1380 May, [facility] [place] [facility] [address] [id number] [place] [address]- 6511 March, [facility] [place] [facility] [address] [id number] [place] [address]- 6221 March, [facility] [place] [facility] [address] [id number] [place] [address]- 9993 Oct, [facility] [place] [facility] [address] [id number] [place] [address]- 4361 Oct, [facility] [place] [facility] [address] [id number] [place] [address]- 9375 Oct, [facility] [place] [facility] [address] [id number] [place] [address]- 2043 Oct, [facility] [place] [facility] [address] [id number] [place] [address]- 0230 Sep, [facility] [place] [facility] [address] [id number] [place] [address]- 7443 Sep, [facility] [place] [facility] [address] [id number] [place] [address]- 7535 Aug, [facility] [place] [facility] [address] [id number] [place] [address]- 7125 Aug, [facility] [place] [facility] [address] [id number] [place] [address]- 7530 Jun, [facility] [place] [facility] [address] [id number] [place] [address]- 1486 Jun, [facility] [place] [facility] [address] [id number] [place] [address]- 0834 Dec, [facility] [place] [facility] [address] [id number] [place] [address]- 6329 Nov, [facility] [address] [facility] [id number] [place] [address]- 2415 Oct, [facility] [address] [id number] [place] [address]- 3584 Aug, [facility] [address] [id number] [place] [address]- 9403 Aug, [facility] [address] [facility] [id number] [place] [address]- 9803 Dec, IMMUNIZATIONS No Known Immunizations SOCIAL HISTORY Never Assessed REASON FOR VISIT Thyroid f/u-PASCUAL Velazquez PLAN OF CARE Activity Details Follow Up 4 weeks lab 3 months office visit Reason:thyroid VITAL SIGNS Height 67 in 2017-08-04 Weight 320 lbs 2017-08-04 Temperature 98.7 degrees Fahrenheit 2017-08-04 Heart Rate 94 bpm 2017-08-04 Respiratory Rate 20 2017-08-04 BMI 50.11 kg/m2 2017-08-04 Blood pressure systolic 110 mmHg 2017-08-04 Blood pressure diastolic 60 mmHg 2017-08-04 MEDICATIONS Medication Instructions Dosage Frequency Start Date End Date Duration Status Omeprazole 20 mg Orally Once a day 1 capsule 24h Active Multivitamin Adults - Active Levothyroxine Sodium 25 MCG Orally Once a day 1 tablet on an empty stomach in the morning 24h Jun, Active Zyrtec Allergy 10 MG Orally Once a day 1 tablet 24h Active Iron 325 (65 Fe) MG Orally Once a day 1 tablet 24h Jun, Active Vitamin C 250 MG Orally Once a day 1 tablet 24h Jun, Active Fluoxetine HCl 40 mg Orally 2 times a day 1 capsule 12h 30 days Active BusPIRone HCl 10 mg Orally Twice a day as needed 1 tablet 30 days Active RESULTS Name Result Date Reference Range CBC 2017-08-04 WBC 8.8 3.4-10.8 RBC 4.38 3.77-5.28 Hemoglobin 11.2 11.1-15.9 Hematocrit 35.5 34.0-46.6 MCV 81 79-97 MCH 25.6 26.6-33.0 MCHC 31.5 31.5-35.7 RDW 18.3 12.3-15.4 Platelets 386 150-379 Neutrophils 65 Not Estab. Lymphs 28 Not Estab. Monocytes 5 Not Estab. Eos 2 Not Estab. Basos 0 Not Estab. Immature Cells Neutrophils (Absolute) 5.6 1.4-7.0 Lymphs (Absolute) 2.5 0.7-3.1 Monocytes(Absolute) 0.5 0.1-0.9 Eos (Absolute) 0.2 0.0-0.4 Baso (Absolute) 0.0 0.0-0.2 Immature Granulocytes 0 Not Estab. Immature Grans (Abs) 0.0 0.0-0.1 NRBC Hematology Comments: PROCEDURES Procedure Date Ordered Result Body Site COMPLETE CBC W/AUTO DIFF WBC Aug 04, 2017 VENIPUNCT, ROUTINE* Aug 04, 2017 INSTRUCTIONS MEDICATIONS ADMINISTERED No Known Medications MEDICAL (GENERAL) HISTORY Type Description Date Medical History anxiety Medical History dysthymia (depressive neurosis) primary Surgical History section 2008 Surgical History orthopedic surgery-fx of left leg, pt has metal plate 2005 Hospitalization History Hospitalization for surgery only
--- OUTSIDE RECORDS SUMMARY | 2018-03-16 21:17 | XMS REPORT ---
Author Author VIOLETTA SHORT Organization [facility] Address [address] [place] [address] Care Team Providers Care Sas Developer Analyst Name Role Phone VIOLETTA SHORT Unavailable PROBLEMS Type Condition ICD9-CM Code [id number] Code Onset Dates Condition Status SNOMED Code Problem Anemia, unspecified type D64.9 Active 223673914 Problem Acquired hypothyroidism E03.9 Active 229588148 Problem Fatigue, unspecified type R53.83 Active 24178092 Problem Other seasonal allergic rhinitis J30.2 Active 039908914 Problem Blood pressure elevated without history of HTN R03.0 Active 684945700 Problem Depression with anxiety F41.8 Active 808145735 Problem Long-term use of high-risk medication Z79.899 Active 357111907 Problem Gastroesophageal reflux disease without esophagitis K21.9 Active 393288792 ALLERGIES No Known Allergies SOCIAL HISTORY Never Assessed PLAN OF CARE Activity Details Follow Up June 2017 Reason:[facility] VITAL SIGNS Height 67 in 2016-12-09 Weight 328.4 lbs 2016-12-09 Temperature 98.3 degrees Fahrenheit 2016-12-09 Heart Rate 80 bpm 2016-12-09 Respiratory Rate 18 2016-12-09 BMI 51.43 kg/m2 2016-12-09 Blood pressure systolic 126 mmHg 2016-12-09 Blood pressure diastolic 70 mmHg 2016-12-09 MEDICATIONS Medication Instructions Dosage Frequency Start Date End Date Duration Status BusPIRone HCl 10 mg Orally Twice a day as needed 1 tablet 30 days Active Zyrtec Allergy 10 MG Orally Once a day 1 tablet 24h Active Omeprazole 20 mg Orally Once a day 1 capsule 24h Active Fluoxetine HCl 40 mg Orally 2 times a day 1 capsule 12h 30 days Active RESULTS No Results PROCEDURES No Known procedures IMMUNIZATIONS No Known Immunizations MEDICAL (GENERAL) HISTORY Type Description Date Medical History anxiety Medical History dysthymia (depressive neurosis) primary Surgical History section 2008 Surgical History orthopedic surgery-fx of left leg, pt has metal plate 2005 Hospitalization History Hospitalization for surgery only
--- OUTSIDE RECORDS SUMMARY | 2018-03-16 21:17 | XMS REPORT ---
Author Author VIOLETTA SHORT [facility] Address [address] [place] [address] Care Team Providers Care Drafting Engineer Name Role Phone VIOLETTA SHORT Unavailable PROBLEMS Type Condition ICD9-CM Code JSX81-YA Code Onset Dates Condition Status SNOMED Code Problem Anemia, unspecified type D64.9 Active 117451750 Problem Acquired hypothyroidism E03.9 Active 149058896 Problem Fatigue, unspecified type R53.83 Active 03295046 Problem Other seasonal allergic rhinitis J30.2 Active 256089143 Problem Blood pressure elevated without history of HTN R03.0 Active 510744629 Problem Depression with anxiety F41.8 Active 644352738 Problem Long-term use of high-risk medication Z79.899 Active 693645316 Problem Gastroesophageal reflux disease without esophagitis K21.9 Active 676458791 ALLERGIES No Information SOCIAL HISTORY Never Assessed PLAN OF CARE VITAL SIGNS MEDICATIONS Medication Instructions Dosage Frequency Start Date End Date Duration Status Zithromax Z-William 250 MG Orally Once a day 2 tablets on the first day, then 1 tablet daily for 4 days 24h Dec, 5 day(s) Active RESULTS No Results PROCEDURES No Known procedures IMMUNIZATIONS No Known Immunizations MEDICAL (GENERAL) HISTORY Type Description Date Medical History anxiety Medical History dysthymia (depressive neurosis) primary Surgical History section 2008 Surgical History orthopedic surgery-fx of left leg, pt has metal plate 2005 Hospitalization History Hospitalization for surgery only
--- OUTSIDE RECORDS SUMMARY | 2018-03-16 21:17 | XMS REPORT ---
Author Author VIOLETTA SHORT Organization [employer] Address Unknown Phone Unavailable Care Team Providers Care Clinical Transplant Coordinator Name Role Phone VIOLETTA SHORT CP Unavailable Allergies No Known Allergies Problems Problem Type Condition Code Onset Dates Condition Status Problem Long-term use of high-risk medication Z79.899 Active Problem Depression with anxiety F41.8 Active Problem Other seasonal allergic rhinitis J30.2 Active Problem Blood pressure elevated without history of HTN R03.0 Active Problem Gastroesophageal reflux disease without esophagitis K21.9 Active Medications Medication Code System Code Instructions Start Date End Date Status Dosage [facility] [address]-35 7.5-325 MG Orally every 6 hrs Jun 25, 2016 1 tablet as needed Results No Known Results Summary Purpose [employer] Submission
--- OUTSIDE RECORDS SUMMARY | 2018-03-16 21:18 | XMS REPORT | Continuity of Care Document ---
Author Author [facility] Address Unknown Phone Unavailable Allergies Active Description Code Type Severity Reaction Onset Reported/Identified Relationship to Patient Clinical Status Yes latex [id number] Drug Allergy Unknown N/A 01/28/2009 Yes pertussis vaccine,adsorbed [id number] Drug Allergy Unknown N/A 2008 Yes pertussis, acellular Drug Allergy 12/12/2010 Medications There is no data. Problems Date Dx Coded Attending Type Code Diagnosis Diagnosed By 12/12/2010 300.4 DYSTHYMIC DISORDER 12/12/2010 SOUMYA BRIGGS DO 300.4 DYSTHYMIC DISORDER 12/12/2010 ALLEY RABAGO APRN 300.4 DYSTHYMIC DISORDER 12/12/2010 SOUMYA BRIGGS DO 300.4 DYSTHYMIC DISORDER 12/12/2010 VIOLETTA SHORT APRN 300.4 DYSTHYMIC DISORDER 12/12/2010 PELON HOLLY DDS 300.4 DYSTHYMIC DISORDER 12/12/2010 VIOLETTA SHORT APRN 300.4 DYSTHYMIC DISORDER 12/12/2010 VIOLETTA SHORT APRN 300.4 DYSTHYMIC DISORDER 08/11/2011 V04.81 FLU DX (3 YRS AND ABOVE, IM) 08/11/2011 SOUMYA BRIGGS DO V04.81 FLU DX (3 YRS AND ABOVE, IM) 08/11/2011 ALLEY RABAGO APRN V04.81 FLU DX (3 YRS AND ABOVE, IM) 08/11/2011 SOUMYA BRIGGS DO V04.81 FLU DX (3 YRS AND ABOVE, IM) 08/11/2011 VIOLETTA SHORT APRN V04.81 FLU DX (3 YRS AND ABOVE, IM) 08/11/2011 PELON HOLLY DDS V04.81 FLU DX (3 YRS AND ABOVE, IM) 08/11/2011 MADL PRESSURE SUPERVISOR, VIOLETTA L V04.81 FLU DX (3 YRS AND ABOVE, IM) 08/11/2011 KRISTIANL PRESSURE SUPERVISOR, VIOLETTA L V04.81 FLU DX (3 YRS AND ABOVE, IM) 11/27/2011 461.9 ACUTE SINUSITIS UNSPECIFIED 11/27/2011 BRIGITTE GANDHI SOUMYA K 461.9 ACUTE SINUSITIS UNSPECIFIED 11/27/2011 LYNNE RABAGO APRNIA R 461.9 ACUTE SINUSITIS UNSPECIFIED 11/27/2011 BRIGGS DO SOUMYA K 461.9 ACUTE SINUSITIS UNSPECIFIED 11/27/2011 MADL PRESSURE SUPERVISOR, VIOLETTA L 461.9 ACUTE SINUSITIS UNSPECIFIED 11/27/2011 PELON HOLLY DDS 461.9 ACUTE SINUSITIS UNSPECIFIED 11/27/2011 MADL PRESSURE SUPERVISOR, VIOLETTA L 461.9 ACUTE SINUSITIS UNSPECIFIED 11/27/2011 MADL PRESSURE SUPERVISOR, VIOLETTA L 461.9 ACUTE SINUSITIS UNSPECIFIED 09/29/2012 278.00 OBESITY 09/29/2012 300.00 anxiety 09/29/2012 305.1 NICOTINE DEPENDENCE 09/29/2012 V25.09 Gynecologic Services Contraceptive General Counseling 09/29/2012 BRIGGS DO, SOUMYA K 278.00 OBESITY 09/29/2012 BRIGGS DO SOUMYA K 300.00 anxiety 09/29/2012 BRIGGS DO SOUMYA K 305.1 NICOTINE DEPENDENCE 09/29/2012 BRIGGS DO SOUMYA K V25.09 Gynecologic Services Contraceptive General Counseling 09/29/2012 LYNNE RABAGO APRNIA R 278.00 OBESITY 09/29/2012 LYNNE RABAGO APRNIA R 300.00 anxiety 09/29/2012 LYNNE RABAGO APRNIA R 305.1 NICOTINE DEPENDENCE 09/29/2012 LYNNE RABAGO APRNIA R V25.09 Gynecologic Services Contraceptive General Counseling 09/29/2012 BRIGGS DO SOUMYA K 278.00 OBESITY 09/29/2012 BRIGGS DO SOUMYA K 300.00 anxiety 09/29/2012 BRIGGS DO, SOUMYA K 305.1 NICOTINE DEPENDENCE 09/29/2012 BRIGGS DO SOUMYA K V25.09 Gynecologic Services Contraceptive General Counseling 09/29/2012 MADL PRESSURE SUPERVISOR, VIOLETTA L 278.00 OBESITY 09/29/2012 MADL PRESSURE SUPERVISOR, VIOLETTA L 300.00 anxiety 09/29/2012 MADL PRESSURE SUPERVISOR, VIOLETTA L 305.1 NICOTINE DEPENDENCE 09/29/2012 MADL PRESSURE SUPERVISOR, VIOLETTA L V25.09 Gynecologic Services Contraceptive General Counseling 09/29/2012 HOLLY DDS, PELON 278.00 OBESITY 09/29/2012 HOLLY DDS, PELON 300.00 anxiety 09/29/2012 HOLLY DDS, PELON 305.1 NICOTINE DEPENDENCE 09/29/2012 HOLLY DDS PELON V25.09 Gynecologic Services Contraceptive General Counseling 09/29/2012 MADL PRESSURE SUPERVISOR, VIOLETTA L 278.00 OBESITY 09/29/2012 MADL PRESSURE SUPERVISOR, VIOLETTA L 300.00 anxiety 09/29/2012 MADL PRESSURE SUPERVISOR, VIOLETTA L 305.1 NICOTINE DEPENDENCE 09/29/2012 MADL PRESSURE SUPERVISOR, VIOLETTA L V25.09 Gynecologic Services Contraceptive General Counseling 09/29/2012 MADL PRESSURE SUPERVISOR, VIOLETTA L 278.00 OBESITY 09/29/2012 MADL PRESSURE SUPERVISOR, VIOLETTA L 300.00 anxiety 09/29/2012 MADL PRESSURE SUPERVISOR, VIOLETTA L 305.1 NICOTINE DEPENDENCE 09/29/2012 MADL PRESSURE SUPERVISOR, VIOLETTA L V25.09 Gynecologic Services Contraceptive General Counseling 10/04/2012 466.0 BRONCHITIS, ACUTE 10/04/2012 V65.42 COUNSELING - SMOKING CESSATION 10/04/2012 SOUMYA BRIGGS DO K 466.0 BRONCHITIS, ACUTE 10/04/2012 BURKE BRIGGS DOA K V65.42 COUNSELING - SMOKING CESSATION 10/04/2012 LYNNE RABAGO APRNIA R 466.0 BRONCHITIS, ACUTE 10/04/2012 XOCHITL RABAGO APRNRICIA R V65.42 COUNSELING - SMOKING CESSATION 10/04/2012 BURKE BRIGGS DOA K 466.0 BRONCHITIS, ACUTE 10/04/2012 BURKE BRIGGS DOA K V65.42 COUNSELING - SMOKING CESSATION 10/04/2012 MADL PRESSURE SUPERVISOR, VIOLETTA L 466.0 BRONCHITIS, ACUTE 10/04/2012 MADL PRESSURE SUPERVISOR, VIOLETTA L V65.42 COUNSELING - SMOKING CESSATION 10/04/2012 PELON HOLLY DDS 466.0 BRONCHITIS, ACUTE 10/04/2012 HOLLY DARIELSPELON V65.42 COUNSELING - SMOKING CESSATION 10/04/2012 MADL PRESSURE SUPERVISOR, VIOLETTA L 466.0 BRONCHITIS, ACUTE 10/04/2012 MADL PRESSURE SUPERVISOR, VIOLETTA L V65.42 COUNSELING - SMOKING CESSATION 10/04/2012 MADL PRESSURE SUPERVISOR, VIOLETTA L 466.0 BRONCHITIS, ACUTE 10/04/2012 MADL PRESSURE SUPERVISOR, VIOLETTA L V65.42 COUNSELING - SMOKING CESSATION 10/10/2013 ALLEY RABAGO APRN R 465.9 UPPER RESPIRATORY INFECTION 10/10/2013 BRIGITTE GANDHI SOUMYA K 465.9 UPPER RESPIRATORY INFECTION 10/10/2013 MADL PRESSURE SUPERVISOR, VIOLETTA L 465.9 UPPER RESPIRATORY INFECTION 10/10/2013 PELON HOLLY DDS 465.9 UPPER RESPIRATORY INFECTION 10/10/2013 MADL PRESSURE SUPERVISOR, VIOLETTA L 465.9 UPPER RESPIRATORY INFECTION 10/10/2013 MADL PRESSURE SUPERVISOR, VIOLETTA L 465.9 UPPER RESPIRATORY INFECTION 03/14/2014 MADL PRESSURE SUPERVISOR, VIOLETTA L V18.0 FAMILY HISTORY OF DIABETES MELLITUS 03/14/2014 PELON HOLLY DDS V18.0 FAMILY HISTORY OF DIABETES MELLITUS 03/14/2014 MADL PRESSURE SUPERVISOR, VIOLETTA L V18.0 FAMILY HISTORY OF DIABETES MELLITUS 03/14/2014 MADL PRESSURE SUPERVISOR, VIOLETTA L V18.0 FAMILY HISTORY OF DIABETES MELLITUS 09/23/2014 NASIM VELASQUEZ, TORITO T Ot 786.50 09/23/2014 NASIM VELASQUEZ, TORITO T Ot 786.59 07/19/2015 MADL, VIOLETTA L APPAREL SALES ASSOCIATE Ot 724.2 12/31/2015 MADL, VIOLETTA L APPAREL SALES ASSOCIATE Ot 724.2 12/26/2016 LAVELL MORGAN MD Ot R11.2 NAUSEA WITH VOMITING, UNSPECIFIED 12/26/2016 LAVELL MORGAN MD Ot R19.7 DIARRHEA, UNSPECIFIED 12/26/2016 LAVELL MORGAN MD Ot R11.2 NAUSEA WITH VOMITING, UNSPECIFIED 12/26/2016 LAVELL MORGAN MD Ot R19.7 DIARRHEA, UNSPECIFIED 01/02/2017 LAVELL MORGAN MD Ot R11.2 NAUSEA WITH VOMITING, UNSPECIFIED 01/02/2017 CATHY VELASQUEZ, LAVELL Perdomo Ot R19.7 DIARRHEA, UNSPECIFIED Procedures Code Description [place] [address] ROUTINE VENIPUNCTURE 08/16/2014 80852 A1C (IN-HOUSE) 08/16/2014 05346 CMP 08/16/2014 14501 LIPID PANEL 08/16/2014 6116606 GFR CALC (RESULT ONLY) 08/16/2014 62358 TSH 08/16/2014 Results Test Result Range Complete blood count (CBC) with automated white blood cell (WBC) differential - 12/26/16 00:22 Blood leukocytes automated count (number/volume) 15.5 10*3/uL 4.3-11.0 Blood erythrocytes automated count (number/volume) 4.90 10*6/uL 4.35-5.85 Venous blood hemoglobin measurement (mass/volume) 12.7 g/dL 11.5-16.0 Blood hematocrit (volume fraction) 39 % 35-52 Automated erythrocyte mean corpuscular volume 79 [foz_us] 80-99 Automated erythrocyte mean corpuscular hemoglobin (mass per erythrocyte) 26 pg 25-34 Automated erythrocyte mean corpuscular hemoglobin concentration measurement ( mass/volume) 33 g/dL 32-36 Automated erythrocyte distribution width ratio 15.1 % 10.0-14.5 Automated blood platelet count (count/volume) 532 10*3/uL 130-400 Automated blood platelet mean volume measurement 9.0 [foz_us] 7.4-10.4 Automated blood neutrophils/100 leukocytes 86 % 42-75 Automated blood lymphocytes/100 leukocytes 9 % 12-44 Blood monocytes/100 leukocytes 5 % 0-12 Automated blood eosinophils/100 leukocytes 1 % 0-10 Automated blood basophils/100 leukocytes 0 % 0-10 Blood neutrophils automated count (number/volume) 13.2 10*3 1.8-7.8 Blood lymphocytes automated count (number/volume) 1.4 10*3 1.0-4.0 Blood monocytes automated count (number/volume) 0.7 10*3 0.0-1.0 Automated eosinophil count 0.1 10*3/uL 0.0-0.3 Automated blood basophil count (count/volume) 0.0 10*3/uL 0.0-0.1 Comprehensive metabolic panel - 12/26/16 00:22 Serum or plasma sodium measurement (moles/volume) 141 mmol/L 135-145 Serum or plasma potassium measurement (moles/volume) 4.1 mmol/L 3.6-5.0 Serum or plasma chloride measurement (moles/volume) 109 mmol/L 98-107 Carbon dioxide 17 mmol/L 21-32 Serum or plasma anion gap determination (moles/volume) 15 mmol/L 5-14 Serum or plasma urea nitrogen measurement (mass/volume) 13 mg/dL 7-18 Serum or plasma creatinine measurement (mass/volume) 0.91 mg/dL 0.60-1.30 Serum or plasma urea nitrogen/creatinine mass ratio 14 NRG Serum or plasma creatinine measurement with calculation of estimated glomerular filtration rate > NRG Serum or plasma glucose measurement (mass/volume) 173 mg/dL 70-105 Serum or plasma calcium measurement (mass/volume) 9.2 mg/dL 8.5-10.1 Serum or plasma total bilirubin measurement (mass/volume) 0.9 mg/dL 0.1-1.0 Serum or plasma alkaline phosphatase measurement (enzymatic activity/volume) 79 U/L 40-136 Serum or plasma aspartate aminotransferase measurement (enzymatic activity/ volume) 14 U/L 5-34 Serum or plasma alanine aminotransferase measurement (enzymatic activity/volume ) 16 U/L 0-55 Serum or plasma protein measurement (mass/volume) 7.6 g/dL 6.4-8.2 Serum or plasma albumin measurement (mass/volume) 3.9 g/dL 3.2-4.5 Blood manual differential performed detection - 12/26/16 00:22 Blood monocytes/100 leukocytes 3 % NRG Manual blood segmented neutrophils/100 leukocytes 85 % NRG Blood band neutrophils/100 leukocytes 2 % NRG Manual blood lymphocytes/100 leukocytes 10 % NRG Blood erythrocyte morphology finding identification NORMAL NRG CBC With Differential/Platelet - 06/17/17 15:04 WBC 8.3 x10E3/uL 3.4-10.8 RBC 4.16 x10E6/uL 3.77-5.28 Hemoglobin 10.4 g/dL 11.1-15.9 Hematocrit 32.9 % 34.0-46.6 MCV 79 fL 79-97 MCH 25.0 pg 26.6-33.0 MCHC 31.6 g/dL 31.5-35.7 RDW 17.7 % 12.3-15.4 Platelets 423 x10E3/uL 150-379 Neutrophils 62 % Lymphs 31 % Monocytes 5 % Eos 2 % Basos 0 % Neutrophils (Absolute) 5.1 x10E3/uL 1.4-7.0 Lymphs (Absolute) 2.6 x10E3/uL 0.7-3.1 Monocytes(Absolute) 0.4 x10E3/uL 0.1-0.9 Eos (Absolute) 0.2 x10E3/uL 0.0-0.4 Baso (Absolute) 0.0 x10E3/uL 0.0-0.2 Immature Granulocytes 0 % Immature Grans (Abs) 0.0 x10E3/uL 0.0-0.1 Comp. Metabolic Panel (14) - 06/17/17 15:04 Glucose, Serum 77 mg/dL 65-99 BUN 10 mg/dL 6-20 Creatinine, Serum 0.72 mg/dL 0.57-1.00 eGFR If NonAfricn Am 111 mL/min/1.73 >59 eGFR If Africn Am 128 mL/min/1.73 >59 BUN/Creatinine Ratio 14 9-23 Sodium, Serum 142 mmol/L 134-144 Potassium, Serum 3.6 mmol/L 3.5-5.2 Chloride, Serum 102 mmol/L 96-106 Carbon Dioxide, Total 23 mmol/L 18-29 Calcium, Serum 8.8 mg/dL 8.7-10.2 Protein, Total, Serum 6.7 g/dL 6.0-8.5 Albumin, Serum 3.8 g/dL 3.5-5.5 Globulin, Total 2.9 g/dL 1.5-4.5 A/G Ratio 1.3 1.2-2.2 Bilirubin, Total 0.3 mg/dL 0.0-1.2 Alkaline Phosphatase, S 74 IU/L 39-117 AST (SGOT) 16 IU/L 0-40 ALT (SGPT) 12 IU/L 0-32 TSH - 06/17/17 15:04 TSH 4.560 uIU/mL 0.450-4.500 Iron and TIBC - 06/22/17 16:25 Iron Bind.Cap.(TIBC) 362 ug/dL 250-450 UIBC 336 ug/dL 131-425 Iron, Serum 26 ug/dL 27-159 Iron Saturation 7 % 15-55 Folate (Folic Acid), Serum - 06/22/17 16:25 Folate (Folic Acid), Serum 16.3 ng/mL >3.0 Vitamin B12 - 06/22/17 16:25 Vitamin B12 379 pg/mL 211-946 Reticulocyte Count - 06/22/17 16:25 Reticulocyte Count 1.6 % 0.6-2.6 CBC - 08/04/17 16:14 WBC 8.8 x10E3/uL 3.4-10.8 RBC 4.38 x10E6/uL 3.77-5.28 Hemoglobin 11.2 g/dL 11.1-15.9 Hematocrit 35.5 % 34.0-46.6 MCV 81 fL 79-97 MCH 25.6 pg 26.6-33.0 MCHC 31.5 g/dL 31.5-35.7 RDW 18.3 % 12.3-15.4 Platelets 386 x10E3/uL 150-379 Neutrophils 65 % Not Estab. Lymphs 28 % Not Estab. Monocytes 5 % Not Estab. Eos 2 % Not Estab. Basos 0 % Not Estab. Neutrophils (Absolute) 5.6 x10E3/uL 1.4-7.0 Lymphs (Absolute) 2.5 x10E3/uL 0.7-3.1 Monocytes(Absolute) 0.5 x10E3/uL 0.1-0.9 Eos (Absolute) 0.2 x10E3/uL 0.0-0.4 Baso (Absolute) 0.0 x10E3/uL 0.0-0.2 Immature Granulocytes 0 % Not Estab. Immature Grans (Abs) 0.0 x10E3/uL 0.0-0.1 Immature Cells NRG NRBC NRG Hematology Comments: NRG CBC With Differential/Platelet - 08/04/17 16:14 WBC 8.8 x10E3/uL 3.4-10.8 RBC 4.38 x10E6/uL 3.77-5.28 Hemoglobin 11.2 g/dL 11.1-15.9 Hematocrit 35.5 % 34.0-46.6 MCV 81 fL 79-97 MCH 25.6 pg 26.6-33.0 MCHC 31.5 g/dL 31.5-35.7 RDW 18.3 % 12.3-15.4 Platelets 386 x10E3/uL 150-379 Neutrophils 65 % Not Estab. Lymphs 28 % Not Estab. Monocytes 5 % Not Estab. Eos 2 % Not Estab. Basos 0 % Not Estab. Neutrophils (Absolute) 5.6 x10E3/uL 1.4-7.0 Lymphs (Absolute) 2.5 x10E3/uL 0.7-3.1 Monocytes(Absolute) 0.5 x10E3/uL 0.1-0.9 Eos (Absolute) 0.2 x10E3/uL 0.0-0.4 Baso (Absolute) 0.0 x10E3/uL 0.0-0.2 Immature Granulocytes 0 % Not Estab. Immature Grans (Abs) 0.0 x10E3/uL 0.0-0.1 CULTURE, URINE - 12/18/17 14:49 CULTURE, URINE, ROUTINE SEE NOTE NRG Encounters ACCT No. Visit Date/Time Discharge Status Pt. Type Provider Facility Loc./Unit Complaint [id number] 08/24/2014 13:55:00 08/24/2014 23:59:59 CLS Outpatient VIOLETTA SHORT APRN [id number] 08/16/2014 12:58:00 08/16/2014 23:59:59 CLS Outpatient VIOLETTA SHORT APRN [id number] 06/28/2014 14:50:00 06/28/2014 23:59:59 CLS Outpatient PELON HOLLY DDS [id number] 03/14/2014 14:04:00 03/14/2014 23:59:59 CLS Outpatient VIOLETTA SHORT APRN [id number] 01/11/2014 14:53:00 01/11/2014 23:59:59 CLS Outpatient SOUMYA BRIGGS DO [id number] 10/10/2013 14:16:00 10/10/2013 23:59:59 CLS Outpatient ALLEY RABAGO APRN [id number] 10/04/2012 16:18:00 10/04/2012 23:59:59 [place] [id number] 10/04/2012 16:18:00 10/04/2012 23:59:59 CLS Outpatient [id number] 02/23/2018 15:00:00 02/23/2018 23:59:59 CLS Outpatient VIOLETTA SHORT APRN [facility] [place] [id number] 12/18/2017 14:40:00 Document Registration [id number] 08/04/2017 14:20:00 Document Registration [id number] 08/05/2017 08:06:00 Document Registration [id number] 06/27/2015 04:32:56 ACT Document Registration [id number] 06/18/2017 12:08:00 Document Registration [id number] 06/23/2017 10:08:00 Document Registration [id number] 12/26/2016 00:09:00 12/26/2016 02:37:00 DIS Emergency CATHY VELASQUEZ, LAVELL Perdomo [facility] ER VOMITING,NAUSEA, DIARRHEA [id number] 06/26/2015 10:03:00 06/26/2015 23:59:59 [facility] Outpatient VIOLETTA SHORT [facility] RAD [id number] 09/23/2014 04:07:00 09/23/2014 06:28:00 DIS Emergency NASIM VELASQUEZ, TORITO Do [facility] ER
--- OUTSIDE RECORDS SUMMARY | 2018-03-16 21:18 | XMS REPORT ---
Author Author VIOLETTA SHORT [facility] [employer] Address Unknown Phone Unavailable Care Team Providers Care Manager Icu Name Role Phone VIOLETTA SHORT CP Unavailable Allergies, Adverse Reactions, Alerts Substance Reaction Event Type N.K.D.A. Info Not Available Non Drug Allergy Problems Problem Type Condition Code Onset Dates Condition Status Assessment Depression with anxiety F41.8 Active Problem Other general counseling and advice for contraceptive management V25.09 Active Problem Nondependent tobacco use disorder 305.1 Active Assessment Gastroesophageal reflux disease without esophagitis K21.9 Active Assessment Blood pressure elevated without history of HTN R03.0 Active Problem Blood pressure elevated without history of HTN R03.0 Active Problem Gastroesophageal reflux disease without esophagitis K21.9 Active Problem Depression with anxiety F41.8 Active Problem Obesity, unspecified 278.00 Active Problem Anxiety state, unspecified 300.00 Active Problem Counseling on substance use and abuse V65.42 Active Problem Family history of diabetes mellitus V18.0 Active Medications Medication Code System Code Instructions Start Date End Date Status Dosage Afrin 12 Hour [facility] [address]17 0.05 % Nasally Twice a day 2 drops as needed Tylenol Severe Allergy [facility] [address]-52 12.5-500 MG Orally every 6 hrs 2 tablets as needed Omeprazole [facility] [address]-91 20 MG Orally Once a day May 03, 2015 1 capsule Fluoxetine HCl [facility] [address]-02 40 MG Orally 2 times a day 1 capsule BusPIRone HCl [facility] [address]-95 10 MG Orally Twice a day as needed 1 tablet Procedures Procedure Coding System Code Date ASSAY THYROID STIM HORMONE CPT-4 36710 Oct 16, 2015 ELECTROCARDIOGRAM, TRACING CPT-4 77458 Oct 16, 2015 COMPREHEN METABOLIC PANEL CPT-4 59384 Oct 16, 2015 VENIPUNCT, ROUTINE* CPT-4 06300 Oct 16, 2015 Office Visit, Est Pt., Level 3 CPT-4 26807 Oct 16, 2015 Vital Signs Date/Time: Oct 16, 2015 Temperature 98.2 F Weight 310.0 lbs Height 67 in BMI 48.55 Index Blood Pressure Diastolic 80 mmHg Blood Pressure Systolic 122 mmHg Cardiac Monitoring Heart Rate 82 bpm Results Name Result Date Reference Range Unit Abnormality Flag EKG, TRACING (IN-HOUSE) ROUTINE VENIPUNCTURE No Test Indicated Summary Purpose eClinicalWorks Submission
--- OUTSIDE RECORDS SUMMARY | 2018-03-16 21:18 | XMS REPORT ---
Author Author AILYN TORRES [facility] Address Unknown Care Team Providers Care Hvac Mechanic Name Role Phone AILYN TORRES Unavailable PROBLEMS Type Condition ICD9-CM Code NOS09-CE Code Onset Dates Condition Status SNOMED Code Assessment Dental caries K02.9 Jun, Active 93062964 Problem Other seasonal allergic rhinitis J30.2 Active 393472911 Problem Long-term use of high-risk medication Z79.899 Active 020078680 Problem Gastroesophageal reflux disease without esophagitis K21.9 Active 106612287 Assessment Dental examination Z01.20 Jun, Active 955869104 Problem Depression with anxiety F41.8 Active 221409339 Problem Blood pressure elevated without history of HTN R03.0 Active 827000491 ALLERGIES Substance Reaction Event Type Date Status N.K.D.A. Unknown Non Drug Allergy Jun, Unknown SOCIAL HISTORY No smoking Hx information available PLAN OF CARE VITAL SIGNS Blood pressure systolic 120 mmHg 2016-06-25 Blood pressure diastolic 63 mmHg 2016-06-25 MEDICATIONS Medication Instructions Dosage Frequency Start Date End Date Duration Status Omeprazole 20 mg Orally Once a day 1 capsule 24h May, Active BusPIRone HCl 10 MG Orally Twice a day as needed 1 tablet 30 days Active Cortisporin 3.5-20198-2 Otic Three times a day 4 drops into affected ear 8h 10 Apr, 2016 07 days Active Flonase 50 MCG/ACT Nasally Once a day 1 spray in each nostril 24h March, 30 day(s) Active Multivitamin Adult Active Fluoxetine HCl 40 mg Orally 2 times a day 1 capsule 12h 30 days Active RESULTS No Results PROCEDURES Procedure Date Ordered Related Diagnosis Body Site LTD ORAL EVALUATION - PROBLEM FOCUS Jun 25, 2016 INTRAORL-PERIAPICAL 1 FILM 15925 Jun 25, 2016 EXTRAC ERUPTED TOOTH/EXPOSED ROOT Jun 25, 2016 BITEWING - SINGLE FILM Jun 25, 2016 IMMUNIZATIONS No Known Immunizations
[2018-03-16 23:39] LABS: BASOPHILS % (AUTO) 0 % (0-10); EOSINOPHILS % (AUTO) 0 % (0-10); HEMATOCRIT 36 % (35-52); HEMOGLOBIN 12.3 G/DL (11.5-16.0); LYMPHOCYTES # (AUTO) 2.2 X 10^3 (1.0-4.0); LYMPHOCYTES % (AUTO) 17 % (12-44); MEAN CORPUSCULAR HEMOGLOBIN 29 PG (25-34); MEAN CORPUSCULAR HGB CONC 34 G/DL (32-36); MEAN CORPUSCULAR VOLUME 85 FL (80-99); MEAN PLATELET VOLUME 9.3 FL (7.4-10.4); MONOCYTES # (AUTO) 0.7 X 10^3 (0.0-1.0); MONOCYTES % (AUTO) 5 % (0-12); NEUTROPHILS # (AUTO) 10.2 X 10^3 (1.8-7.8); NEUTROPHILS % (AUTO) 77 % (42-75); PLATELET COUNT 374 10^3/uL (130-400); RED BLOOD COUNT 4.28 10^6/uL (4.35-5.85); RED CELL DISTRIBUTION WIDTH 15.2 % (10.0-14.5); WHITE BLOOD COUNT 13.2 10^3/uL (4.3-11.0)
[2018-03-16 23:54] LABS: PROTHROMBIN TIME PATIENT 13.5 SEC (12.2-14.7)
[2018-03-16 23:59] LABS: ALANINE AMINOTRANSFERASE 18 U/L (0-55); ALBUMIN 3.9 GM/DL (3.2-4.5); ALKALINE PHOSPHATASE 51 U/L (40-136); AMYLASE 43 U/L (25-125); BILIRUBIN,TOTAL 0.7 MG/DL (0.1-1.0); BUN/CREATININE RATIO 16; CALCIUM 8.9 MG/DL (8.5-10.1); CARBON DIOXIDE 17 MMOL/L (21-32); CHLORIDE 109 MMOL/L (98-107); CREATINE KINASE 166 U/L (29-168); CREATININE SERUM 0.67 MG/DL (0.60-1.30); GFR ESTIMATED > 60; GLUCOSE 91 MG/DL (70-105); LIPASE 15 U/L (8-78); POTASSIUM 3.4 MMOL/L (3.6-5.0); SODIUM 139 MMOL/L (135-145); TOTAL PROTEIN 6.9 GM/DL (6.4-8.2)
[2018-03-17 00:06] LABS: CREATINE KINASE MB 1.7 NG/ML (<6.6)
[2018-03-17] MEDS ORDERED: NS 250 ML (IVPB) BAG IV ONE (00:30)
[2018-03-17] MEDS ORDERED: IOHEXOL 350 MG/ML 100 ML (OMNIPAQUE 350) VIAL IV ONE (00:30)
[2018-03-17 01:16] LABS: BILIRUBIN,URINE NEGATIVE (NEGATIVE); CLARITY,URINE CLEAR; COLOR,URINE YELLOW; GLUCOSE, URINE (UA) NEGATIVE (NEGATIVE); KETONES,URINE 4+ (NEGATIVE); LEUKOCYTE ESTERASE ,URINE 1+ (NEGATIVE); NITRITE,URINE NEGATIVE (NEGATIVE); PH,URINE 6 (5-9); PROTEIN,URINE 4+ (NEGATIVE); UROBILINOGEN,URINE NORMAL (NORMAL)
[2018-03-17 01:24] LABS: BACTERIA,URINE TRACE /HPF; HYALINE CASTS, URINE 0-2 /LPF; WBC,URINE RARE /HPF
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
[2018-03-17] MEDS ORDERED: ORPHENADRINE 60 MG/2 ML (NORFLEX) AMP ONE (01:55)
[2018-03-17] MEDS ORDERED: KETOROLAC 30 MG/ML VIAL ONE (01:55)
[2018-03-17] MEDS ORDERED: NAPR-915 PO ×2 (01:58→02:08)
[2018-03-17] MEDS ORDERED: CYCL10TA9 PO ×2 (01:58→02:08)
[2018-03-17] MEDS ORDERED: KETOROLAC 30 MG/ML VIAL IVP ONE (02:00)
[2018-03-17] MEDS ORDERED: ORPHENADRINE 60 MG/2 ML (NORFLEX) AMP IVP ONE (02:00)
[2018-03-17 02:08] VITALS: BP 135/70
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
== END 2018-03-17 02:08 | disposition home or self-care (01) ==
LOC: EDUNIT# 21:11 → ER 21:12
DX: S43.402A Unspecified sprain of left shoulder joint, initial encounter (principal); S20.211A Contusion of right front wall of thorax, initial encounter; S30.1XXA Contusion of abdominal wall, initial encounter; K21.9 Gastro-esophageal reflux disease without esophagitis; E03.9 Hypothyroidism, unspecified; F41.9 Anxiety disorder, unspecified; F32.9 Major depressive disorder, single episode, unspecified; E66.9 Obesity, unspecified; R40.2142 Coma scale, eyes open, spontaneous, at arrival to emergency department; R40.2252 Coma scale, best verbal response, oriented, at arrival to emergency department; R40.2362 Coma scale, best motor response, obeys commands, at arrival to emergency department; Z88.7 Allergy status to serum and vaccine; Z87.891 Personal history of nicotine dependence; Z87.59 Personal history of other complications of pregnancy, childbirth and the puerperium; V49.40XA Driver injured in collision with unspecified motor vehicles in traffic accident, initial encounter
CPT/HCPCS: 36415; 71045; 71260; 72170; 73030; 74177; 80053; 81000; 82150; 82550; 82553; 83690; 84484; 84703; 85025; 85610; 85730; 93005; 96374; 96375

== ENCOUNTER 2022-01-27 19:00 | Emergency (ER) | payer OTHER ==
[~2022-01-27] VITALS: Ht 170.2 cm; Wt 142.2 kg
[~2022-01-27 19:00] MED LIST changes: +CYCL10TA25 PO; +NAPR-915 PO
[2022-01-27 19:29] LABS: BASOPHILS % (AUTO) 0 % (0-10); EOSINOPHILS % (AUTO) 1 % (0-10); HEMATOCRIT 36 % (35-52); HEMOGLOBIN 11.8 g/dL (11.5-16.0); LYMPHOCYTES # (AUTO) 0.7 10^3/uL (1.0-4.0); LYMPHOCYTES % (AUTO) 8 % (12-44); MEAN CORPUSCULAR HEMOGLOBIN 26 pg (25-34); MEAN CORPUSCULAR HGB CONC 33 g/dL (32-36); MEAN CORPUSCULAR VOLUME 81 fL (80-99); MEAN PLATELET VOLUME 8.8 fL (9.0-12.2); MONOCYTES # (AUTO) 0.4 10^3/uL (0.0-1.0); MONOCYTES % (AUTO) 5 % (0-12); NEUTROPHILS # (AUTO) 7.4 10^3/uL (1.8-7.8); NEUTROPHILS % (AUTO) 86 % (42-75); PLATELET COUNT 372 10^3/uL (130-400); WHITE BLOOD COUNT 8.6 10^3/uL (4.3-11.0)
--- NOTE | 2022-01-27 19:29 | ED Abdominal Pain ---
General Stated Complaint: SEVER PAIN Source of Information: Patient Exam Limitations: No Limitations History of Present Illness Date Seen by Provider: Jan 27, 2022 Time Seen by Provider: 19:15 Initial Comments The patient presents to the ER by private conveyance with chief complaint of progressively mounting severe right upper quadrant abdominal pain all day. She is concerned about her gallbladder. She has had no problems with in the past. No trauma. No lifting. 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 She states she took some ibuprofen simethicone antiacids as well as her daily omeprazole 20 mg twice daily with no relief of symptoms. It is now a 6 out of 10. It waxes and wanes in pain. Is causing her to sweat and hurts when she takes deep breaths. She is had no cough fever but she does have chills. She has been nauseated with some vomiting of clear fluid. Last time she ate was at 0 700 this morning. No diarrhea but she feels the need to have a bowel movement. She had a normal bowel movement yesterday. No history of IBS/IBD. She had a but no other abdominal surgeries. She has a history of hypothyroidism, depression on BuSpar and GERD. Allergies and Home Medications Allergies Coded Allergies: Latex (Verified Allergy, Unknown, 01/28/09) Pertussis Vaccine,Adsorbed (Verified Allergy, Unknown, 01/29/09) Patient Home Medication List Home Medication List Reviewed: Yes Buspirone Hcl (Buspar) 5 Mg Tablet, 10 MG PO BID, (Reported) Entered as Reported by: ESTRELLA HARO on 09/23/14422 Cyclobenzaprine HCl (Cyclobenzaprine HCl) 10 Mg Tablet, 10 MG PO Q8H Prescribed by: TOMAS DACOSTA on 03/17/18207 Dicyclomine Hcl (Bentyl) 20 Mg Tablet, 1 EACH PO QID PRN Prescribed by: RYAN MOORE MD on 09/10/09 1121 Fluoxetine Hcl (Fluoxetine Hcl) 40 Mg Capsule, 1 EACH PO DAILY, (Reported) Entered as Reported by: ESTRELLA HARO on 09/23/14422 Naproxen (Naproxen) 500 Mg Tablet, 500 MG PO BID Prescribed by: TOMAS DACOSTA on 03/17/18207 Ondansetron (Ondansetron Odt) 4 Mg Tab.rapdis, 4-8 MG PO Q6H PRN for NAUSEA/VOMITING Prescribed by: STEPHANIE ARCHIBALD on 01/27/222114 Promethazine HCl (Promethazine Tablet) 25 Mg Tablet, 25 MG PO Q8H PRN for NAUSEA/VOMITING Prescribed by: LAVELL MORGAN on 12/26/16 020 Promethazine HCl (Promethazine Tablet) 25 Mg Tablet, 25 MG PO Q6H PRN for NAUSEA/VOMITING Prescribed by: STEPHANIE ARCHIBALD on 01/27/222114 Promethazine Hcl (Phenergan 25 Mg) 25 Mg Tablet, 1 TAB PO QID Prescribed by: RYAN MOORE MD on 09/10/09 112 Review of Systems Review of Systems Constitutional: No chills, No diaphoresis EENTM: No Blurred Vision, No Double Vision Respiratory: Denies Cough, Denies Shortness of Air Cardiovascular: Denies Chest Pain, Denies Lightheadedness Gastrointestinal: See HPI, Abdominal Pain; Denies Constipated, Denies Diarrhea; Nausea, Poor Fluid Intake, Vomiting Genitourinary: Denies Burning, Denies Discharge Musculoskeletal: No back pain, No joint pain Skin: No pruritus, No rash Psychiatric/Neurological: Denies Headache, Denies Numbness All Other Systems Reviewed Negative Unless Noted: Yes Past Pnlyhdf-Wosbql-Twsofg Hx Patient Social History Tobacco Use?: No Use of E-Cig and/or Vaping dev: No Substance use?: No Seasonal Allergies Seasonal Allergies: Yes Past Medical History Surgeries: Yes ( X 1; LEFT LOWER LEG FX/ORIF) Section, Orthopedic Respiratory: No Cardiac: No Neurological: No Reproductive Disorders: No Female Reproductive Disorders: Denies Genitourinary: No Gastrointestinal: Yes Gastroesophageal Reflux Musculoskeletal: No Endocrine: Yes (OBESITY) Hypothyroidsim Cancer: No Psychosocial: Yes Anxiety, Depression Integumentary: No Blood Disorders: No Physical Exam Vital Signs Vital Signs - First Documented 01/27/22 19:16 Temp 36.4 Pulse 73 Resp 26 B/P (MAP) 176/89 (118) Pulse Ox 97 O2 Delivery Room Air Capillary Refill : Height/Weight/BMI Height: 5'7.00" Weight: 318lbs. 0oz. 144.341929eq; BMI Method:Stated General Appearance: WD/WN, moderate distress HEENT: PERRL/EOMI, pharynx normal Neck: non-tender, full range of motion, supple, normal inspection Respiratory: lungs clear, normal breath sounds, no respiratory distress, no accessory muscle use Cardiovascular: normal peripheral pulses, regular rate, rhythm, no edema Peripheral Pulses: 2+ Radial Pulses (R), 2+ Radial Pulses (L) Gastrointestinal: normal bowel sounds (Quiescent), guarding (Right upper quad), tenderness (Right upper quadrant without Blake sign), other (Negative for Rovsing sign, psoas sign, McBurney point tenderness or rebound tenderness. No mesenteric signs) Extremities: normal range of motion, non-tender, normal inspection, normal capillary refill Neurologic/Psychiatric: alert, normal mood/affect, oriented x 3 Skin: normal color, diaphoresis Progress/Results/Core Measures Results/Orders Lab Results Laboratory Tests Test 01/27/22 19:24 01/27/22 19:25 01/27/22 19:31 Range/Units White Blood Count 8.6 4.3-11.0 10^3/uL Red Blood Count 4.49 3.80-5.11 10^6/uL Hemoglobin 11.8 11.5-16.0 g/dL Hematocrit 36 35-52 % Mean Corpuscular Volume 81 80-99 fL Mean Corpuscular Hemoglobin 26 25-34 pg Mean Corpuscular Hemoglobin Concent 33 32-36 g/dL Red Cell Distribution Width 14.7 H 10.0-14.5 % Platelet Count 372 130-400 10^3/uL Mean Platelet Volume 8.8 L 9.0-12.2 fL Immature Granulocyte % (Auto) 0 % Neutrophils (%) (Auto) 86 H 42-75 % Lymphocytes (%) (Auto) 8 L 12-44 % Monocytes (%) (Auto) 5 0-12 % Eosinophils (%) (Auto) 1 0-10 % Basophils (%) (Auto) 0 0-10 % Neutrophils # (Auto) 7.4 1.8-7.8 10^3/uL Lymphocytes # (Auto) 0.7 L 1.0-4.0 10^3/uL Monocytes # (Auto) 0.4 0.0-1.0 10^3/uL Eosinophils # (Auto) 0.0 0.0-0.3 10^3/uL Basophils # (Auto) 0.0 0.0-0.1 10^3/uL Immature Granulocyte # (Auto) 0.0 0.0-0.1 10^3/uL Sodium Level 138 135-145 MMOL/L Potassium Level 3.0 L 3.6-5.0 MMOL/L Chloride Level 106 98-107 MMOL/L Carbon Dioxide Level 19 L 21-32 MMOL/L Anion Gap 13 5-14 MMOL/L Blood Urea Nitrogen 11 7-18 MG/DL Creatinine 0.75 0.60-1.30 MG/DL Estimat Glomerular Filtration Rate 106 BUN/Creatinine Ratio 15 Glucose Level 156 H 70-105 MG/DL Calcium Level 8.6 8.5-10.1 MG/DL Corrected Calcium 8.8 8.5-10.1 MG/DL Magnesium Level 1.4 L 1.6-2.4 MG/DL Total Bilirubin 1.2 H 0.1-1.0 MG/DL Aspartate Amino Transf (AST/SGOT) 18 5-34 U/L Alanine Aminotransferase (ALT/SGPT) 16 0-55 U/L Alkaline Phosphatase 62 40-136 U/L C-Reactive Protein High Sensitivity 1.10 H 0.00-0.50 MG/DL Total Protein 7.0 6.4-8.2 GM/DL Albumin 3.7 3.2-4.5 GM/DL Lipase 23 8-78 U/L Influenza Type A (RT-PCR) Not Detected Not Detecte Influenza Type B (RT-PCR) Not Detected Not Detecte SARS-CoV-2 RNA (RT-PCR) Not Detected Not Detecte Urine Color YELLOW Urine Clarity CLEAR Urine pH 6.0 5-9 Urine Specific [place] >=1.030 1.016-1.022 Urine Protein 2+ H NEGATIVE Urine Glucose (UA) NEGATIVE NEGATIVE Urine Ketones 3+ H NEGATIVE Urine Nitrite NEGATIVE NEGATIVE Urine Bilirubin 1+ H NEGATIVE Urine Urobilinogen 1.0 < = 1.0 MG/DL Urine Leukocyte Esterase NEGATIVE NEGATIVE Urine RBC (Auto) 2+ H NEGATIVE Urine RBC 2-5 H /HPF Urine WBC 2-5 /HPF Urine Squamous Epithelial Cells 2-5 /HPF Urine Renal Epithelial Cells NONE /HPF Urine Crystals NONE /LPF Urine Bacteria LARGE H /HPF Urine Casts NONE /LPF Urine Mucus NEGATIVE /LPF Urine Yeast FEW H /HPF Urine Culture Indicated YES My Orders Orders - STEPHANIE ARCHIBALD Ct Abdomen/Pelvis W (01/27/22 19:22) Ed Iv/Invasive Line Start (01/27/22 19:22) Lactated Ringers (Lr 1000 Ml Iv Solution (01/27/22 19:30) Cbc With Automated Diff (01/27/22 19:22) Comprehensive Metabolic Panel (01/27/22 19:22) Hs C Reactive Protein (01/27/22 19:22) Lipase (01/27/22 19:22) Ua Culture If Indicated (01/27/22 19:22) Urine Bedside (01/27/22 19:22) Covid 19 Inhouse Test (01/27/22 19:22) Influenza A And B By Pcr (01/27/22 19:22) Fentanyl Inj (Sublimaze Injection) (01/27/22 19:30) Ondansetron Injection (Zofran Injectio (01/27/22 19:30) Pantoprazole Injection (Protonix Injecti (01/27/22 19:30) Iohexol Injection (Omnipaque 350 Mg/Ml 1 (01/27/22 19:45) Received Contrast (Hold Metformin- Contr (01/27/22 19:45) Ns (Ivpb) (Sodium Chloride 0.9% Ivpb Bag (01/27/22 19:45) Urine Culture (01/27/22 19:31) Promethazine Injection (Phenergan Injec (01/27/22 20:15) Diphenhydramine Injection (Benadryl Inje (01/27/22 20:15) Fentanyl Inj (Sublimaze Injection) (01/27/22 20:15) Magnesium (01/27/22 20:10) Potassium Cl 10meq/50ml Ivpb (Kcl 10 Meq (01/27/22 20:15) Ed Iv/Invasive Line Start (01/27/22 20:19) Ns Iv 1000 Ml (Sodium Chloride 0.9%) (01/27/22 20:30) Ns Iv 1000 Ml (Sodium Chloride 0.9%) (01/27/22 20:18) Iohexol Injection (Omnipaque 350 Mg/Ml 1 (01/27/22 21:00) Received Contrast (Hold Metformin- Contr (01/27/22 21:00) Ns (Ivpb) (Sodium Chloride 0.9% Ivpb Bag (01/27/22 21:00) Magnesium 1 Gm/100 Ml Ivpb (Magnesium Law (01/27/22 21:15) Rx-Ondansetron Po (Rx-Zofran Po) (01/27/22 21:16) Medications Given in ED Current Medications Medications Dose Ordered Sig/Nura Route Start Time Stop Time Status Last Admin Dose Admin Diphenhydramine HCl 25 mg ONCE ONCE IVP 01/27/22 20:15 01/27/22 20:16 DC 01/27/22 20:22 25 MG Fentanyl Citrate 50 mcg ONCE ONCE IVP 01/27/22 19:30 01/27/22 19:31 DC 01/27/22 19:30 50 MCG Fentanyl Citrate 50 mcg ONCE ONCE IVP 01/27/22 20:15 01/27/22 20:16 DC 01/27/22 20:21 50 MCG Iohexol 100 ml ONCE ONCE IV 01/27/22 19:45 01/27/22 19:46 DC 01/27/22 20:58 100 ML Lactated Ringer's 1,000 ml @ 0 mls/hr Q0M ONCE IV 01/27/22 19:30 01/27/22 19:31 DC 01/27/22 19:30 0 MLS/HR Magnesium Sulfate/ Dextrose 100 ml @ 100 mls/hr ONCE ONCE IV 01/27/22 21:15 01/27/22 22:14 DC 01/27/22 21:39 100 MLS/HR Ondansetron HCl 8 mg ONCE ONCE IVP 01/27/22 19:30 01/27/22 19:31 DC 01/27/22 19:30 8 MG Pantoprazole 40 mg ONCE ONCE IV 01/27/22 19:30 01/27/22 19:31 DC 01/27/22 19:30 40 MG Potassium Chloride 50 ml @ 50 mls/hr ONCE ONCE IV 01/27/22 20:15 01/27/22 21:14 DC 01/27/22 20:28 50 MLS/HR Promethazine HCl 25 mg ONCE ONCE IVP 01/27/22 20:15 01/27/22 20:16 DC 01/27/22 20:20 25 MG Sodium Chloride 100 ml ONCE ONCE IV 01/27/22 19:45 01/27/22 19:46 DC 01/27/22 20:58 80 ML Vital Signs/I&O 01/27/22 01/27/22 19:16 22:43 Temp 36.4 Pulse 73 75 Resp 26 20 B/P (MAP) 176/89 (118) 148/76 Pulse Ox 97 96 O2 Delivery Room Air Room Air 01/28/22 00:00 Intake Total 1000 ml Balance 1000 ml Progress Progress Note #1: Time: 19:27 Progress Note No tachycardia or fever but she is diaphoretic and appears to be in significant amount of discomfort. We will give her 50 mcg of fentanyl, a liter of fluids to flush out the contrast, 8 of Zofran for her nausea and get a CT to examine her for possibility of cholecystitis/cholelithiasis, other possibilities include GERD for which we will give her pantoprazole 40 mg. The differential also includes PUD, gastroenteritis/colitis, preformed toxin, less likely UTI or ureteral stone. Progress Note #2: Time: 21:12 Progress Note Phenergan and Benadryl seem to help her nausea better than Zofran. Her pain is almost gone. She seems to have an enteritis and such we will send her home with some Zofran and Phenergan and instructions to return if necessary. Follow-up 3 to 5 days if not seeing improvements. We will give her a second liter of fluids a gram of magnesium and 10 mill equivalents of potassium. Diagnostic Imaging Diagonstic Imaging: CT Plain Films/CT/US/NM/MRI: abdomen, pelvis Comments [facility] [place] NAME: MALCOM APONTE Conor [facility] REC#: [id number] PT STATUS: REG ER : 1985 PHYSICIAN: STEPHANIE ARCHIBALD MD ADMIT DATE: 01/27/22/ER Signed Date of Exam:01/27/22 CT ABDOMEN/PELVIS W EXAMINATION: CT abdomen and pelvis with intravenous contrast. TECHNIQUE: Multiple contiguous axial images were obtained through the abdomen and pelvis after the uneventful administration of intravenous contrast. All CT scans use one or more of the following dose optimizing techniques: automated exposure control, MA and/or KvP adjustment based on patient size and exam type or iterative reconstruction. HISTORY: Right upper quadrant pain. Vomiting. COMPARISON: 03/17/2018. FINDINGS: The heart is unremarkable. The included lung bases are clear. The liver, spleen, pancreas, adrenal glands, and kidneys have a normal appearance. The gallbladder is unremarkable. No evidence of cholelithiasis. There is no pathologically enlarged mesenteric or retroperitoneal adenopathy. The bowel loops are nondilated. Fluid-filled loops of large and small bowel are seen without evidence of obstruction. The appendix is visualized in the right lower quadrant and has a normal appearance There is no free fluid or free air. No acute osseous abnormalities. Ureters and bladder are grossly normal. There is no free air, loculated collection, or adenopathy in the pelvis. IMPRESSION: 1. Fluid-filled loops of large and small bowel without evidence of obstruction. Findings are most suggestive of enteritis/colitis. 2. Normal appendix. Dictated by: Dictated on workstation # [id number] Dict: 01/27/222104 Trans: 01/27/222112 [facility] [id number] Interpreted by: PACO COWAN DO Electronically signed by: PACO COWAN DO 01/27/222112 Reviewed: Reviewed by Me Departure Impression Primary Impression: Gastroenteritis and colitis, viral Disposition: HOME, SELF-CARE Condition: Stable Departure-Patient Inst. Decision time for Depature: 21:13 Referrals: [facility] [place] (PCP/Family) Primary Care Physician Patient Instructions: Viral Gastroenteritis, Adult (DC) Add. Discharge Instructions: Please drink plenty of fluids. Sports drinks are a good option. Stick to a bland diet until you are feeling better. Zofran 1 to 2 tablets every 6 hours as needed for nausea. Phenergan 1 tablet every 6 hours as needed for nausea. You can combine this with Benadryl 25 mg every 6 hours. Expect to see improvement over 3 to 5 days. Return to the ER if you are becoming dehydrated due to intractable nausea vomiting diarrhea or intractable pain despite Tylenol and Motrin. If you are not seeing improvement in 3 to 5 days then follow-up with your primary care doctor for reevaluation. Scripts Promethazine HCl (Promethazine Tablet) 25 Mg Tablet 25 MG PO Q6H PRN for NAUSEA/VOMITING, #12 TAB 0 Refills Prov: STEPHANIE ARCHIBALD 01/27/22 Ondansetron (Ondansetron Odt) 4 Mg Tab.rapdis 4-8 MG PO Q6H PRN for NAUSEA/VOMITING, #15 TAB 0 Refills Prov: STEPHANIE ARCHIBALD 01/27/22 Work/School Note: Work Release Form Date Seen in the Emergency Department: Jan 27, 2022 Return to Work: Jan 30, 2022 Restrictions: No Restrictions, Return-No Fever (24hrs) STEPHANIE ARCHIBALD Jan 27, 2022 19:29
[2022-01-27] MEDS ORDERED: ONDANSETRON 4 MG/2 ML (SDV) Z0FRAN IVP ONE (19:30)
[2022-01-27] MEDS ORDERED: LACTATED RINGERS 1,000 ML IV ONE (19:30)
[2022-01-27] MEDS ORDERED: PANTOPRAZOLE 40 MG (PROTONIX) VIAL IV ONE (19:30)
[2022-01-27] MEDS ORDERED: fentaNYL INJ 100 MCG/2 ML AMP IVP ONE ×2 (19:30→20:15)
[2022-01-27 19:36] LABS: CLARITY,URINE CLEAR; COLOR,URINE YELLOW; GLUCOSE, URINE (UA) NEGATIVE (NEGATIVE); KETONES,URINE 3+ (NEGATIVE); LEUKOCYTE ESTERASE ,URINE NEGATIVE (NEGATIVE); NITRITE,URINE NEGATIVE (NEGATIVE); PROTEIN,URINE 2+ (NEGATIVE)
[2022-01-27] MEDS ORDERED: NS 100 ML (IVPB) BAG IV ONE ×2 (19:45→21:00)
[2022-01-27] MEDS ORDERED: HOLD METFORMIN - RECEIVED CONTRAST 20 ML VIAL IV SCH ×2 (19:45→21:00)
[2022-01-27] MEDS ORDERED: IOHEXOL 350 MG/ML 100 ML (OMNIPAQUE 350) VIAL IV ONE ×2 (19:45→21:00)
[2022-01-27 19:46] LABS: BACTERIA,URINE LARGE /HPF; BILIRUBIN,URINE 1+ (NEGATIVE); YEAST,URINE FEW /HPF
[2022-01-27 19:59] LABS: ALBUMIN 3.7 GM/DL (3.2-4.5); BILIRUBIN,TOTAL 1.2 MG/DL (0.1-1.0); CALCIUM 8.6 MG/DL (8.5-10.1); CREATININE SERUM 0.75 MG/DL (0.60-1.30)
[2022-01-27] MEDS ORDERED: POTASSIUM CL 10MEQ/50ML IVPB 50 ML IV ONE (20:15)
[2022-01-27] MEDS ORDERED: diphenhydrAMINE 50 MG/ML INJ (BENADRYL) IVP ONE (20:15)
[2022-01-27] MEDS ORDERED: PROMETHAZINE INJ 25 MG/ML (PHENERGAN) AMP IVP ONE (20:15)
[2022-01-27] MEDS ORDERED: NS IV 1000 ML 1,000 ML ONE (20:18)
[2022-01-27] MEDS ORDERED: NS IV 1000 ML 1,000 ML IV SCH (20:30)
--- NOTE | 2022-01-27 21:08 | Diagnostic Imaging Report ---
EXAMINATION: CT abdomen and pelvis with intravenous contrast. TECHNIQUE: Multiple contiguous axial images were obtained through the abdomen and pelvis after the uneventful administration of intravenous contrast. All CT scans use one or more of the following dose optimizing techniques: automated exposure control, MA and/or KvP adjustment based on patient size and exam type or iterative reconstruction. HISTORY: Right upper quadrant pain. Vomiting. COMPARISON: 03/17/2018. FINDINGS: The heart is unremarkable. The included lung bases are clear. The liver, spleen, pancreas, adrenal glands, and kidneys have a normal appearance. The gallbladder is unremarkable. No evidence of cholelithiasis. There is no pathologically enlarged mesenteric or retroperitoneal adenopathy. The bowel loops are nondilated. Fluid-filled loops of large and small bowel are seen without evidence of obstruction. The appendix is visualized in the right lower quadrant and has a normal appearance There is no free fluid or free air. No acute osseous abnormalities. Ureters and bladder are grossly normal. There is no free air, loculated collection, or adenopathy in the pelvis. IMPRESSION: 1. Fluid-filled loops of large and small bowel without evidence of obstruction. Findings are most suggestive of enteritis/colitis. 2. Normal appendix. Dictated by: Dictated on workstation # [id number]
[2022-01-27] MEDS ORDERED: ONDA4TAB11 PO (21:15)
[2022-01-27] MEDS ORDERED: MAGNESIUM 1 GM/100 ML IVPB 100 ML IV ONE (21:15)
[2022-01-27] MEDS ORDERED: PROM25TA14 PO (21:15)
[2022-01-27] MEDS ORDERED: RX-ONDANSETRON 4 MG ODT (ZOFRAN) PPK #4 PO STA (21:16)
[2022-01-27 22:43] VITALS: BP 148/76
== END 2022-01-27 22:43 | disposition home or self-care (01) ==
LOC: EDUNIT# 19:00 → ER 19:03
DX: A08.4 Viral intestinal infection, unspecified (principal); K21.9 Gastro-esophageal reflux disease without esophagitis; Z91.040 Latex allergy status; Z20.822 Contact with and (suspected) exposure to COVID-19
CPT/HCPCS: 36415; 74177; 80053; 81000; 83690; 83735; 84703; 85025; 86141; 87088; 87636

== ENCOUNTER 2022-02-03 05:36 | Outpatient (CLI) | payer OTHER ==
[~2022-02-03] VITALS: Ht 170.2 cm; Wt 143.2 kg
[~2022-02-03 05:36] MED LIST changes: +ONDA4TAB11 PO
[2022-02-04] MEDS ORDERED: FLUO40CA12 PO (14:51)
[2022-02-04] MEDS ORDERED: IRON (14:51)
[2022-02-04] MEDS ORDERED: ZYRTEC (14:51)
[2022-02-04] MEDS ORDERED: OMEPRAZOLE (14:51)
[2022-02-04] MEDS ORDERED: SYNTHROID (14:51)
== END 2022-02-04 15:15 | disposition home or self-care (01) ==
LOC: PREOP 05:36
PROVIDERS: ATTEND Obstetrics & Gynecology
DX: Z01.818 Encounter for other preprocedural examination (principal)

== ENCOUNTER 2022-02-10 07:11 | Day surgery (SDC) | payer OTHER ==
[2022-02-10] VITALS (11 sets, daily range): BP systolic 113–131; BP diastolic 47–89
[~2022-02-10] VITALS: Ht 170.2 cm; Wt 143.2 kg
[~2022-02-10 07:11] MED LIST changes: +FLUO40CA12 PO; +IRON; +OMEPRAZOLE; +SYNTHROID; +ZYRTEC
[2022-02-10] MEDS ORDERED: BUPIVACAINE 0.25% 10 ML (SENSORCAINE) VIAL ONE (07:28)
[2022-02-10 08:13] LABS: BASOPHILS % (AUTO) 1 % (0-10); EOSINOPHILS # (AUTO) 0.1 10^3/uL (0.0-0.3); EOSINOPHILS % (AUTO) 2 % (0-10); HEMATOCRIT 35 % (35-52); HEMOGLOBIN 11.2 g/dL (11.5-16.0); LYMPHOCYTES # (AUTO) 1.5 10^3/uL (1.0-4.0); LYMPHOCYTES % (AUTO) 25 % (12-44); MEAN CORPUSCULAR HEMOGLOBIN 26 pg (25-34); MEAN CORPUSCULAR HGB CONC 32 g/dL (32-36); MEAN CORPUSCULAR VOLUME 82 fL (80-99); MEAN PLATELET VOLUME 8.9 fL (9.0-12.2); MONOCYTES # (AUTO) 0.4 10^3/uL (0.0-1.0); MONOCYTES % (AUTO) 6 % (0-12); NEUTROPHILS % (AUTO) 66 % (42-75); PLATELET COUNT 332 10^3/uL (130-400); WHITE BLOOD COUNT 6.1 10^3/uL (4.3-11.0)
[2022-02-10] MEDS ORDERED: LACTATED RINGERS 1,000 ML IV PRN (08:15)
[2022-02-10] MEDS ORDERED: ONDANSETRON 4 MG/2 ML (SDV) Z0FRAN ONE (08:22)
[2022-02-10] MEDS ORDERED: proPOfol 200 MG/20 ML (DIPRIVAN) VIAL IV ONE ×2 (08:22→08:48)
[2022-02-10] MEDS ORDERED: fentaNYL INJ 100 MCG/2 ML AMP ONE (08:22)
[2022-02-10] MEDS ORDERED: MIDAZOLAM 2 MG/2 ML (VERSED) VIAL ONE (08:22)
[2022-02-10] MEDS ORDERED: KETOROLAC 30 MG/ML VIAL ONE (08:22)
[2022-02-10] MEDS ORDERED: LIDOCAINE PF 2% 5 ML (XYLOCAINE) VIAL ONE (08:22)
--- NOTE | 2022-02-10 08:35 | Progress Note-Pre Operative ---
Pre-Operative Progress Note H&P Reviewed The H&P was reviewed, patient examined and no changes noted. Date Seen by Provider: Feb 10, 2022 Time Seen by Provider: 08:15 Date H&P Reviewed: Feb 10, 2022 Time H&P Reviewed: 08:15 Pre-Operative Diagnosis: AUB, Menorrhagia, BMI > 45 KELLY CARRASCO DO Feb 10, 2022 08:34
[2022-02-10] MEDS ORDERED: IBUP-1773 PO (08:36)
--- NOTE | 2022-02-10 08:36 | Discharge Inst-Women's Service ---
Discharge Inst-Women's Serv Depart Medication/Instructions New, Converted or Re-Newed RX: Transmitted to Pharmacy Problems Reviewed?: Yes Consults/Follow Up Additional Follow Up: Yes Orders/Referrals Dr. Carrasco/Monique in 2 weeks Activity Activity: Activity as Tolerated Driving Instructions: You May Drive NO SMOKING: NO SMOKING Nothing Inside Vagina: No Douching, No [place], No Tampons Diet Discharge Diet: No Restrictions Symptoms to Report to : Bleeding Excessive, Pain Increased, Fever Over 101 Degrees F, Vaginal Bleeding Increase, Questions/Concerns For Any Problems or Questions: Contact Your Physician KELLY CARRASCO DO Feb 10, 2022 08:36
[2022-02-10] MEDS ORDERED: HYDROcodone/APAP 5 MG/325 MG (LORTAB) TAB PO PRN (08:45)
[2022-02-10] MEDS ORDERED: KETOROLAC 30 MG/ML VIAL IVP ONE (08:45)
[2022-02-10] MEDS ORDERED: ONDANSETRON 4 MG/2 ML (SDV) Z0FRAN IVP PRN ×2 (08:45→09:15)
[2022-02-10] MEDS ORDERED: D5 LR IV SOLUTION 1,000 ML IV SCH (08:45)
[2022-02-10] MEDS ORDERED: SEVOFLURANE (ULTANE) 15 ML INHAL SOLN ONE (09:02)
[2022-02-10] MEDS ORDERED: PROMETHAZINE INJ 25 MG/ML (PHENERGAN) AMP IVP ONE (09:15)
[2022-02-10] MEDS ORDERED: HYDROmorphone 2 MG/ML VIAL (DILAUDID) IV ONE (09:15)
[2022-02-10] MEDS ORDERED: morphine INJ 10 MG/ML 1ML (SYR OR VIAL) IVP ONE (09:15)
[2022-02-10] MEDS ORDERED: MEPERIDINE (DEMEROL) INJ 50 MG/ML IVP ONE (09:15)
--- NOTE | 2022-02-10 09:15 | Anesthesia-General Post-Op ---
General Patient Condition Mental Status/LOC: Same as Preop Cardiovascular: Satisfactory Nausea/Vomiting: Absent Respiratory: Satisfactory Pain: Controlled Complications: Absent Post Op Complications Complications None Follow Up Care/Instructions Patient Instructions None needed. Anesthesia/Patient Condition Patient Condition Patient is doing well, no complaints, stable vital signs, no apparent adverse anesthesia problems. No complications reported per nursing. BEATRIZ COLLINS CRNA Feb 10, 2022 09:14
--- NOTE | 2022-02-10 15:01 | OPERATIVE REPORT ---
DATE OF SERVICE: PREOPERATIVE DIAGNOSES: 1. A 36-year-old female with abnormal uterine bleeding. 2. BMI greater than 45. 3. Thickened endometrium on ultrasound. POSTOPERATIVE DIAGNOSES: 1. A 36-year-old female with abnormal uterine bleeding. 2. BMI greater than 45. 3. Thickened endometrium on ultrasound. PROCEDURE: D and C. SURGEON: Kelly Carrasco DO ANESTHESIA: LMA general. ESTIMATED BLOOD LOSS: Minimal. URINE OUTPUT: 50 mL drained at the end of the procedure. FLUIDS: 800 mL lactated Ringer's solution. FINDINGS: Moderate amount of endometrial tissue collected, possibly suspicious for endometrial polyp. SPECIMEN SENT: Endometrial curettings. INDICATIONS FOR PROCEDURE: This 36-year-old female is a patient who has consulted to me from [facility] due for heavy bleeding that was not responsive to any conservative management options and medical options. I discussed with the patient my concern given her weight and the possibility of hyperplasia or endometrial carcinoma and that due to not being response with medical management therapy, I have concerns that endometrial sampling might be warranted at this point due to her increased risk for endometrial carcinoma. I discussed with the patient an office biopsy versus D and C and the potential curative properties of D and C. After all of her questions were answered, she did agree to proceed with D and C. Risks of procedure were discussed with the patient in detail including risk of bleeding, infection, damage to surrounding structures including, but not limited to the uterus itself. After everything was discussed with the patient in detail, consent was obtained in the preoperative area, the patient was taken to the operating room. OPERATIVE REPORT IN DETAIL: Once in the operating room, general anesthesia was found to be adequate, placed in a dorsal lithotomy position, prepped and draped in normal sterile fashion. A timeout was performed. A weighted speculum inserted to the patient's vagina. Right angle retractor was used to visualize the cervix, which was grasped at 12 o'clock position using a long Allis clamp. I then performed paracervical block at 3 and 9 o'clock positions on the cervix using 0.25% Marcaine with 5 mL are injected into each site, care was taken to aspirate before injecting. I then gently sound the uterine cavity, was found to be 8 cm. I then gently dilated the cervix using Hanks dilators to maximum dilatation approximately 1 cm, at which point I performed a gentle curettage using a medium size endometrial curette of all endometrial surfaces until a gentle uterine cry is appreciated. All the tissue was collected and sent as endometrial curettings, after which there was no active bleeding noted from the cervix. All the instruments were then removed from the patient's vagina. The patient tolerated the procedure well and sent to recovery area in stable condition. Lap and sponge counts were correct at the end of the procedure. Instrument counts correct as well. Job ID: [id number] DocumentID: [id number] Dictated Date: 02/10/2022 09:13:34 Building Service Worker Date: 02/10/2022 15:01:08 Dictated By: KELLY CARRASCO DO
== END 2022-02-10 11:05 | disposition home or self-care (01) ==
LOC: SDC 07:11
PROVIDERS: ATTEND Obstetrics & Gynecology
DX: N84.0 Polyp of corpus uteri (principal); N94.5 Secondary dysmenorrhea; D25.1 Intramural leiomyoma of uterus; R93.89 Abnormal findings on diagnostic imaging of other specified body structures; K21.9 Gastro-esophageal reflux disease without esophagitis; E66.01 Morbid (severe) obesity due to excess calories; Z87.891 Personal history of nicotine dependence; Z68.42 Body mass index [BMI] 45.0-49.9, adult
CPT/HCPCS: 36415; 84703; 85025; 86850; 86900; 86901; 87081; 88305

== ENCOUNTER → 2022-06-16 | Outpatient (CLI) | payer OTHER ==
[~2022-06-16] VITALS: Ht 170.2 cm; Wt 143.2 kg
[~2022-06-16] MED LIST changes: +IBUP-1773 PO
== END ==
LOC: PREOP 05:30
PROVIDERS: ATTEND Obstetrics & Gynecology
DX: Z01.818 Encounter for other preprocedural examination (principal); N92.0 Excessive and frequent menstruation with regular cycle; N94.6 Dysmenorrhea, unspecified; Z68.42 Body mass index [BMI] 45.0-49.9, adult

== ENCOUNTER 2022-06-23 08:36 | Day surgery (SDC) | payer OTHER ==
[~2022-06-23] VITALS: Ht 170 cm; Wt 143.2 kg
[2022-06-23] VITALS (12 sets, daily range): BP systolic 113–159; BP diastolic 68–97
[2022-06-23] MEDS ORDERED: ceFAZolin 2 GM IV Premixed 50 ML IV ONE (08:45)
[2022-06-23] MEDS ORDERED: metroNIDAZOLE 500MG/100ML IVPB 100 ML IV ONE (08:45)
[2022-06-23] MEDS ORDERED: ONDANSETRON 4 MG/2 ML (SDV) Z0FRAN ONE ×2 (09:02→12:02)
[2022-06-23] MEDS ORDERED: ROCURONIUM 50 MG/5 ML (ZEMURON) VIAL IV ONE ×2 (09:02→11:26)
[2022-06-23] MEDS ORDERED: MIDAZOLAM 2 MG/2 ML (VERSED) VIAL ONE (09:02)
[2022-06-23] MEDS ORDERED: proPOfol 200 MG/20 ML (DIPRIVAN) VIAL IV ONE (09:02)
[2022-06-23] MEDS ORDERED: LIDOCAINE PF 2% 5 ML (XYLOCAINE) VIAL ONE (09:02)
[2022-06-23] MEDS ORDERED: fentaNYL INJ 100 MCG/2 ML AMP ONE ×3 (09:02→12:02)
[2022-06-23] MEDS: LACTATED RINGERS 1,000 ML IV PRN ×2 (09:05→10:38)
[2022-06-23] MEDS ORDERED: ANTACID SUSP 30 ML UDC (MYLANTA) PO PRN (09:15)
[2022-06-23] MEDS ORDERED: ZOLPIDEM 5 MG (AMBIEN) TAB PO PRN (09:15)
[2022-06-23] MEDS ORDERED: DOCUSATE SODIUM 100 MG (COLACE) CAP PO PRN (09:15)
[2022-06-23] MEDS ORDERED: BUPIVACAINE 0.25% 30 ML (SENSORCAINE) VIAL ONE (09:15)
[2022-06-23] MEDS ORDERED: ONDANSETRON 4 MG/2 ML (SDV) Z0FRAN IV PRN (09:15)
[2022-06-23] MEDS ORDERED: SIMETHICONE 80 MG (MYLICON) CHEW PO PRN (09:15)
[2022-06-23] MEDS ORDERED: CEPACOL SORE THROAT-COUGH LOZENGE MM PRN (09:15)
[2022-06-23 09:33] LABS: BASOPHILS % (AUTO) 1 % (0-10); EOSINOPHILS # (AUTO) 0.2 10^3/uL (0.0-0.3); EOSINOPHILS % (AUTO) 3 % (0-10); HEMATOCRIT 36 % (35-52); HEMOGLOBIN 11.9 g/dL (11.5-16.0); LYMPHOCYTES # (AUTO) 2.1 10^3/uL (1.0-4.0); LYMPHOCYTES % (AUTO) 29 % (12-44); MEAN CORPUSCULAR HEMOGLOBIN 27 pg (25-34); MEAN CORPUSCULAR HGB CONC 33 g/dL (32-36); MEAN CORPUSCULAR VOLUME 82 fL (80-99); MEAN PLATELET VOLUME 9.2 fL (9.0-12.2); MONOCYTES # (AUTO) 0.4 10^3/uL (0.0-1.0); MONOCYTES % (AUTO) 5 % (0-12); NEUTROPHILS # (AUTO) 4.7 10^3/uL (1.8-7.8); NEUTROPHILS % (AUTO) 63 % (42-75); PLATELET COUNT 337 10^3/uL (130-400); WHITE BLOOD COUNT 7.4 10^3/uL (4.3-11.0)
--- NOTE | 2022-06-23 09:42 | Discharge Inst-Women's Service ---
Discharge Inst-Women's Serv Depart Medication/Instructions New, Converted or Re-Newed RX: Transmitted to Pharmacy Problems Reviewed?: Yes Consults/Follow Up Additional Follow Up: Yes Orders/Referrals Dr. Lopez in 7-10 days and in 8 weeks Activity Activity: Activity as Tolerated Driving Instructions: No Driving for 1 Week NO SMOKING: NO SMOKING Nothing Inside Vagina: No Douching, No [place], No Tampons Diet Discharge Diet: No Restrictions Symptoms to Report to : Bleeding Excessive, Pain Increased, Fever Over 101 Degrees F, Vaginal Bleeding Increase, Questions/Concerns For Any Problems or Questions: Contact Your Physician Skin/Wound Care Infection Signs and Symptoms: Increased Redness, Foul Odor of Wound, Increased Drainage, Skin Itchy or Has a Rash, Increased Swelling, Temperature Above 101 F Operative Area Clean and Dry: Keep Incision Clean/Dry Stitches/Ani/Dermabond: Dermabond, Care of Stitches Bathing Instructions: KELLY Chung DO Jun 23, 2022 09:41
[2022-06-23] MEDS ORDERED: IBUP-1773 PO (09:43)
[2022-06-23] MEDS ORDERED: DOCU100C37 PO (09:43)
[2022-06-23] MEDS ORDERED: HYDR-34 PO (09:43)
[2022-06-23] MEDS ORDERED: SIME80TA16 PO (09:43)
[2022-06-23] MEDS ORDERED: SEVOFLURANE (ULTANE) 15 ML INHAL SOLN ONE (11:31)
[2022-06-23] MEDS ORDERED: NEOSTIGMINE (BLOXIVERZ ) 1 MG/1ML 10 ML VIAL ONE (11:36)
[2022-06-23] MEDS ORDERED: GLYCOPYRROLATE 0.2 MG/ML (ROBINUL) 2 ML VIAL ONE (11:36)
--- NOTE | 2022-06-23 11:57 | Anesthesia-General Post-Op ---
General Patient Condition Mental Status/LOC: Same as Preop Cardiovascular: Satisfactory Nausea/Vomiting: Absent Respiratory: Satisfactory Pain: Controlled Complications: Absent Post Op Complications Complications None Follow Up Care/Instructions Patient Instructions None needed. Anesthesia/Patient Condition Patient Condition Patient is doing well, no complaints, stable vital signs, no apparent adverse anesthesia problems. No complications reported per nursing. KHRIS WILL CRNA Jun 23, 2022 11:57
[2022-06-23] MEDS ORDERED: fentaNYL INJ 100 MCG/2 ML AMP IVP ONE (12:00)
[2022-06-23] MEDS ORDERED: ONDANSETRON 4 MG/2 ML (SDV) Z0FRAN IVP PRN (12:00)
[2022-06-23] MEDS ORDERED: HYDROmorphone 2 MG/ML VIAL (DILAUDID) IV ONE (12:00)
[2022-06-23] MEDS ORDERED: KETOROLAC 30 MG/ML VIAL ONE (12:02)
[2022-06-23] MEDS: KETOROLAC 30 MG/ML VIAL IVP PRN ×3 (12:07→23:59)
[2022-06-23] MEDS ORDERED: HYDROmorphone 2 MG/ML VIAL (DILAUDID) ONE (12:29)
[2022-06-23] MEDS: LACTATED RINGERS 1,000 ML IV SCH ×2 (14:25→21:59)
--- NOTE | 2022-06-23 15:13 | OPERATIVE REPORT ---
DATE OF SERVICE: PREOPERATIVE DIAGNOSES: 1. A 37-year-old female with abnormal uterine bleeding. 2. Menorrhagia. 3. Body mass index greater than 50. POSTOPERATIVE DIAGNOSES: 1. A 37-year-old female with abnormal uterine bleeding. 2. Menorrhagia. 3. Body mass index greater than 50. 4. Fibroid uterus. PROCEDURE: Robotic-assisted total laparoscopic hysterectomy with bilateral salpingectomy, weighing greater than 250 grams. SURGEON: Quincy Carrasco DO INSULATION AND FLOORING ASSEMBLER: Monique Samaniego DNP, was necessary for manipulation and retraction throughout the procedure. ANESTHESIA: General endotracheal. ESTIMATED BLOOD LOSS: 100 mL. URINE OUTPUT: 80 mL clear at the end of the procedure. FLUIDS: 1500 mL lactated Ringer's solution. FINDINGS: A bulky enlarged uterus with both subserosal and submucosal and intramural fibroids. SPECIMEN SENT: Uterus, bilateral fallopian tubes. INDICATIONS FOR PROCEDURE: This 37-year-old female is a patient who had sought my care for hysterectomy after more conservative alleviating measures had failed. The patient did not desire any future childbearing and was okay and agreeable to proceed with this as the bleeding was making her life very miserable. I discussed with the patient definitive measures in the form of hysterectomy. Risks of procedure were discussed with the patient in detail as well as alternatives. Risks of the procedure including risk of bleeding, infection, damage to surrounding structures including, but not limited to bowel, bladder, ureter, kidneys, possible need for reoperation, postoperative complications that may occur, recovery timeframe, risk from anesthesia and even . After everything was discussed with the patient in detail, consent was obtained, the patient was taken to the operating room. OPERATIVE REPORT IN DETAIL: Once in the operating room, general anesthesia was found to be adequate, she was placed in dorsal lithotomy position, prepped and draped in normal sterile fashion. Timeout was performed and Jama catheter was placed using sterile technique. A weighted speculum inserted to the patient's vagina. Right angle retractor was used to visualize the cervix and 0 Vicryl suture was placed in anterior lip of the cervix and the suture was used as my retraction point. I then gently sound the uterine cavity, depth was found to be 8 cm. I placed a Advanced Image Enhancement uterine manipulator with the 8 cm manipulator tip and a 3 cm colpotomy ring into the vagina into the cervix. The manipulator tip was advanced. A colpotomy ring was advanced around the vaginal fornix. I then removed all the instruments from the patient's vagina, performed change of gloves, turned my attention to the abdomen where subcostally at the midclavicular line on the left side, I introduced the Veress needle until intraperitoneal placement confirmed using saline drop test. An opening pressure of 5 mmHg was noted. I proceeded to maximum pressure of 15 mmHg, at which point I placed an infraumbilical trocar by making an 8 mm incision with a knife and directing the trocar under direct visualization of laparoscope. Once this trocar was in place, I am able to confirm intraperitoneal placement using da Mir laparoscope. There was no evidence of damage upon my entry site. There was no evidence of damage in the left upper quadrant. A Veress needle was removed under direct visualization of laparoscope. I then had the patient placed in steep Trendelenburg where I am able to visualize all my pelvic anatomy as defined in my findings above. I placed two lateral trocars using both 8 mm trocars approximately 10 cm lateral to my infraumbilical trocar. Once both these trocars were placed under direct visualization of laparoscope, I bring in the da Mir robot and docked in appropriate fashion. Using the SynchroSeal device in the left hand and monopolar john in the right hand, I took my place at the operative console and performed the following dissection bilaterally starting at the uteroovarian ligament, I sealed and transected this using the SynchroSeal device. I then created a window in the mesosalpinx and took this laterally down the mesosalpinx amputating the fallopian tube from its surrounding blood supply. I then grasped the round ligament, which I sealed and transected using the SynchroSeal device. I then grasped the entire broad ligament, which I sealed and transected using the SynchroSeal device down to the level of the lower uterine segment, at which point I the anterior and posterior leaflets of the broad ligament. The anterior leaflet was taken around to the anterior vaginal fornix. The posterior leaflet was taken around to the posterior vaginal fornix. This allows me to skeletonize uterine vessels laterally, which I then sealed and transect using the SynchroSeal device. I then created a colpotomy at 12 o'clock position using monopolar john and took this circumferentially around the vaginal fornix amputating the cervix away from the vagina. The entire specimen was then removed through the vagina. It was very difficult removal due to the size of the uterus and there is a laceration at 6 o'clock noted on the vaginal cuff. It was repaired using the robot using 2-0 V-Loc in a running fashion. I then closed the vaginal cuff using 2-0 V-Loc in a running fashion as well, after which no active bleeding noted from the peritoneal portion of the vagina and the vaginal cuff. I then undocked the da Mir robot and proceeded with remainder of the case laparoscopically. I copiously irrigated the pelvis using normal saline. Once again, there was no active bleeding noted from any of my dissection planes. I placed Surgiflo hemostatic agent over all my planes of dissection and then took the patient out of steep Trendelenburg. The lateral trocars then removed under direct visualization of the laparoscope. Infraumbilical trocars left in place to release insufflation and introduced 10 mL of 0.25% Marcaine in peritoneal cavity for postoperative pain management. I then removed this trocar as well. The skin reapproximated using 4-0 Monocryl in interrupted subcuticular stitches. Dermabond was applied to the incisions and Band-Aids were placed over the incisions as well. There is still some significant bleeding noted from the vagina and there is an extension of the laceration of the vagina noted. It is repaired afterwards using 3-0 Vicryl suture in a running locked fashion, after which there is still slight amount of oozing noted from that area, so to be safe I packed the vagina using vaginal packing and decided to keep the patient overnight for this after which Jama catheter was left in place. Lap and sponge counts were correct at the end of the procedure. Instrument counts correct as well. Two grams of Ancef, 500 mg of Flagyl were given preoperatively for infection prophylaxis. Job ID: [id number] DocumentID: [id number] Dictated Date: 06/23/2022 12:03:29 Instructional Paraprofessional Date: 06/23/2022 15:12:34 Dictated By: QUINCY CARRASCO DO
[2022-06-23] MEDS: HYDROcodone/APAP 7.5 MG/325 MG (LORTAB, LORCET PLUS) TABLET PO PRN (16:08)
[2022-06-24] VITALS: BP 127/62
[2022-06-24 03:45] VITALS: BP 122/63
[2022-06-24] MEDS: KETOROLAC 30 MG/ML VIAL IVP PRN (05:37)
[2022-06-24] MEDS: LACTATED RINGERS 1,000 ML IV SCH (05:38)
[2022-06-24] MEDS: HYDROcodone/APAP 7.5 MG/325 MG (LORTAB, LORCET PLUS) TABLET PO PRN ×2 (07:00→14:55)
[2022-06-24 08:10] VITALS: BP 160/73
[2022-06-24 12:00] VITALS: BP 121/58
[2022-06-24 15:15] VITALS: BP 121/58
== END 2022-06-24 15:15 | disposition home or self-care (01) ==
LOC: SDC 08:36 → WS 12:06 → SDC 06-24 15:15
PROVIDERS: ATTEND Obstetrics & Gynecology
DX: D25.1 Intramural leiomyoma of uterus (principal); N72 Inflammatory disease of cervix uteri; N83.8 Other noninflammatory disorders of ovary, fallopian tube and broad ligament; Z87.891 Personal history of nicotine dependence; N92.0 Excessive and frequent menstruation with regular cycle; E66.01 Morbid (severe) obesity due to excess calories; Z68.42 Body mass index [BMI] 45.0-49.9, adult; K21.9 Gastro-esophageal reflux disease without esophagitis; Z79.899 Other long term (current) drug therapy
CPT/HCPCS: 36415; 84703; 85025; 86850; 86900; 86901; 87081

== ENCOUNTER 2023-01-13 17:37 | Emergency (ER) | payer OTHER ==
[~2023-01-13] VITALS: Ht 170 cm; Wt 144.0 kg
[~2023-01-13 17:37] MED LIST changes: +DOCU100C37 PO; +HYDR-34 PO; +SIME80TA16 PO
[2023-01-13 18:00] LABS: BASOPHILS % (AUTO) 0 % (0-10); EOSINOPHILS # (AUTO) 0.2 10^3/uL (0.0-0.3); EOSINOPHILS % (AUTO) 2 % (0-10); HEMATOCRIT 38 % (35-52); HEMOGLOBIN 12.9 g/dL (11.5-16.0); LYMPHOCYTES # (AUTO) 2.9 10^3/uL (1.0-4.0); LYMPHOCYTES % (AUTO) 33 % (12-44); MEAN CORPUSCULAR HEMOGLOBIN 28 pg (25-34); MEAN CORPUSCULAR HGB CONC 34 g/dL (32-36); MEAN CORPUSCULAR VOLUME 84 fL (80-99); MEAN PLATELET VOLUME 8.5 fL (9.0-12.2); MONOCYTES # (AUTO) 0.5 10^3/uL (0.0-1.0); MONOCYTES % (AUTO) 5 % (0-12); NEUTROPHILS # (AUTO) 5.3 10^3/uL (1.8-7.8); NEUTROPHILS % (AUTO) 60 % (42-75); PLATELET COUNT 367 10^3/uL (130-400); WHITE BLOOD COUNT 8.9 10^3/uL (4.3-11.0)
[2023-01-13] MEDS ORDERED: ASPIRIN 81 MG CHEW (CHILDREN'S ASA) PO ONE (18:00)
[2023-01-13] MEDS ORDERED: NITROGLYCERIN 0.4 MG SL TABS BTL 25'S SL PRN (18:00)
[2023-01-13 18:10] LABS: ALBUMIN 3.8 GM/DL (3.2-4.5); CHLORIDE 106 MMOL/L (98-107); POTASSIUM 3.3 MMOL/L (3.6-5.0); SODIUM 139 MMOL/L (135-145)
[2023-01-13 18:11] LABS: AMYLASE 57 U/L (25-125); CALCIUM 8.7 MG/DL (8.5-10.1)
[2023-01-13 18:13] LABS: GLUCOSE 92 MG/DL (70-105); TOTAL PROTEIN 7.3 GM/DL (6.4-8.2)
[2023-01-13 18:14] LABS: BILIRUBIN,TOTAL 0.6 MG/DL (0.1-1.0); CARBON DIOXIDE 22 MMOL/L (21-32)
[2023-01-13] MEDS ORDERED: PANTOPRAZOLE 40 MG (PROTONIX) VIAL IV ONE (18:15)
[2023-01-13 18:16] LABS: ALKALINE PHOSPHATASE 71 U/L (40-136); CREATININE SERUM 0.76 MG/DL (0.60-1.30); GFR ESTIMATED 103
--- NOTE | 2023-01-13 18:16 | ED Chest Pain ---
General Chief Complaint: Chest Pain Stated Complaint: CHEST PAIN Nursing Triage Note: Patient ambulatory to room 3 w c/o chest pain that's been going on for 3-4 months. Patient states pain is on right side and "sometimes radiates up the right side of neck and down the right arm a little bit." Source: patient History of Present Illness Date Seen by Provider: Jan 13, 2023 Time Seen by Provider: 17:50 Initial Comments PT ARRIVES VIA POV FROM HOME C/O INTERMITTENT MID CHEST PAIN FOR THE LAST 3-4 MONTHS--POINTS TO MID STERNUM AREA OF PAIN NOTHING WORSENS OR IMPROVES PAIN --SHE HAS NOT TAKEN ANYTHING FOR PAIN TODAY PT STATES THERE IS NO RADIATION OF PAIN PAIN IS 6/10 NOW, AND VARIES IN INTENSITY FROM A 5-7/10. 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 ATE [facility] AT 1230 TODAY. SHE HAS BEEN DX WITH GERD IN THE PAST, BUT NO TESTS WERE DONE--SHE TAKES PRILOSEC OTC TWICE A DAY SHE TAKES MEDICATION FOR DEPRESSION AND ANXIETY, OTHERWISE DOES NOT HAVE ANY MEDICAL PROBLEMS, OTHER THAN OBESITY AND A "PROLAPSED BLADDER" SHE HAS HAD X1, AND HYSTERECTOMY WITH OVARIES STILL INTACT SHE HAS HAD COVID VACCINE X 2, AND NO FLU VACCINE. PCP: [facility]. Allergies and Home Medications Allergies Coded Allergies: latex (Verified Allergy, Unknown, rash, 02/04/22) pertussis vaccine,adsorbed (Verified Allergy, Unknown, 02/04/22) had since a child with no issues Patient Home Medication List Docusate Sodium (Docusate Sodium) 100 Mg Capsule, 100 MG PO BID PRN for CONSTIPATION-1ST LINE Prescribed by: KELLY CARRASCO on 06/23/22 0943 Fluoxetine HCl (Prozac) 40 Mg Capsule, 40 MG PO BID, (Reported) Entered as Reported by: LULU KAUFMAN on 02/04/221450 Hydrocodone Bit/Acetaminophen (HYDROcodone/APAP 7.5/325 TAB) 1 Ea Tablet, 1-2 EA PO Q6HR PRN for PAIN-MODERATE (5-7) Prescribed by: KELLY CARRASCO on 06/23/22942 Ibuprofen (Ibuprofen) 600 Mg Tablet, 600 MG PO Q6H Prescribed by: KELLY CARRASCO on 06/23/22942 Simethicone (Simethicone) 80 Mg Tab.chew, 40 MG PO TID PRN for INDIGESTION 2ND LINE Prescribed by: KELLY CARRASCO on 06/23/22942 [Iron] Unknown Strength , Unknown Dose, (Reported) Entered as Reported by: LULU KAUFMAN on 02/04/221450 [Omeprazole] 10 MG , BID, (Reported) Entered as Reported by: LULU KAUFMAN on 02/04/221450 [Synthroid] Unknown Strength , Unknown Dose, (Reported) Entered as Reported by: LULU KAUFMAN on 02/04/221450 [Zyrtec] Unknown Strength , Unknown Dose, (Reported) Entered as Reported by: LULU KAUFMAN on 02/04/221450 Review of Systems Review of Systems Constitutional: no symptoms reported EENTM: No Symptoms Reported Respiratory: No Symptoms Reported Cardiovascular: See HPI, Chest Pain Gastrointestinal: No Symptoms Reported Genitourinary: No Symptoms Reported Musculoskeletal: no symptoms reported Skin: no symptoms reported Psychiatric/Neurological: No Symptoms Reported Endocrine: No Symptoms Reported Hematologic/Lymphatic: No Symptoms Reported Past Fdedlig-Ybeoxf-Dtgexd Hx Patient Social History Tobacco Use?: Yes Tobacco type used: Cigarettes Smoking Status: Former Smoker Substance use?: No Alcohol Use?: No Immunizations Up To Date Tetanus Booster (TDap): Unknown First/Initial COVID19 Vaccinat: unknown Second COVID19 Vaccination Earnest: SEPTEMBER 2021 Third COVID19 Vaccination Date: AUGUST 2021 COVID19 Vaccine V Block Saw Operator: Sesar Seasonal Allergies Seasonal Allergies: Yes Past Medical History Surgeries: Yes ( X 1; LEFT LOWER LEG FX/ORIF; D&C;HYST/OVARIES INTACT) Section, Hysterectomy, Orthopedic Respiratory: No Currently Using CPAP: No Currently Using BIPAP: No Cardiac: No Neurological: Yes Headaches /Migraines Reproductive Disorders: Yes Female Reproductive Disorders: Menstrual Problems, Ovarian Cyst, Polycystic Ovarian Dis 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 0oz. 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 Norm as Tested Skin: Normal Color, Warm/Dry Progress/Results/Core Measures Results/Orders Lab Results Laboratory Tests Test 01/13/23 17:50 Range/Units White Blood Count 8.9 4.3-11.0 10^3/uL Red Blood Count 4.57 3.80-5.11 10^6/uL Hemoglobin 12.9 11.5-16.0 g/dL Hematocrit 38 35-52 % Mean Corpuscular Volume 84 80-99 fL Mean Corpuscular Hemoglobin 28 25-34 pg Mean Corpuscular Hemoglobin Concent 34 32-36 g/dL Red Cell Distribution Width 14.5 10.0-14.5 % Platelet Count 367 130-400 10^3/uL Mean Platelet Volume 8.5 L 9.0-12.2 fL Immature Granulocyte % (Auto) 0 % Neutrophils (%) (Auto) 60 42-75 % Lymphocytes (%) (Auto) 33 12-44 % Monocytes (%) (Auto) 5 0-12 % Eosinophils (%) (Auto) 2 0-10 % Basophils (%) (Auto) 0 0-10 % Neutrophils # (Auto) 5.3 1.8-7.8 10^3/uL Lymphocytes # (Auto) 2.9 1.0-4.0 10^3/uL Monocytes # (Auto) 0.5 0.0-1.0 10^3/uL Eosinophils # (Auto) 0.2 0.0-0.3 10^3/uL Basophils # (Auto) 0.0 0.0-0.1 10^3/uL Immature Granulocyte # (Auto) 0.0 0.0-0.1 10^3/uL Erythrocyte Sedimentation Rate 22 H 0-20 MM/HR Prothrombin Time 13.6 12.2-14.7 SEC INR Comment 1.0 0.8-1.4 Activated Partial Thromboplast Time 30 24-35 SEC D-Dimer 0.58 H 0.00-0.49 UG/ML Sodium Level 139 135-145 MMOL/L Potassium Level 3.3 L 3.6-5.0 MMOL/L Chloride Level 106 98-107 MMOL/L Carbon Dioxide Level 22 21-32 MMOL/L Anion Gap 11 5-14 MMOL/L Blood Urea Nitrogen 9 7-18 MG/DL Creatinine 0.76 0.60-1.30 MG/DL Estimat Glomerular Filtration Rate 103 BUN/Creatinine Ratio 12 Glucose Level 92 70-105 MG/DL Calcium Level 8.7 8.5-10.1 MG/DL Corrected Calcium 8.9 8.5-10.1 MG/DL Magnesium Level 1.7 1.6-2.4 MG/DL Total Bilirubin 0.6 0.1-1.0 MG/DL Aspartate Amino Transf (AST/SGOT) 19 5-34 U/L Alanine Aminotransferase (ALT/SGPT) 19 0-55 U/L Alkaline Phosphatase 71 40-136 U/L Total Creatine Kinase 92 29-168 U/L Creatine Kinase MB 0.7 <6.6 NG/ML Myoglobin 26.2 10.0-92.0 NG/ML Troponin I < 0.028 <0.028 NG/ML C-Reactive Protein High Sensitivity 0.65 H 0.00-0.50 MG/DL B-Type Natriuretic Peptide 23.4 <100.0 PG/ML Total Protein 7.3 6.4-8.2 GM/DL Albumin 3.8 3.2-4.5 GM/DL Amylase Level 57 25-125 U/L Lipase 23 8-78 U/L Serum Test, Qualitative NEGATIVE NEGATIVE My Orders Orders - TOMAS DACOSTA DO Ed Iv/Invasive Line Start (01/13/23 17:51) O2 (01/13/23 17:51) Monitor-Rhythm Ecg Trace Only (01/13/23 17:51) Amylase (01/13/23 17:51) Bnp Maryse (01/13/23 17:51) Cbc With Automated Diff (01/13/23 17:51) Comprehensive Metabolic Panel (01/13/23 17:51) Creatine Kinase (01/13/23 17:) Creatine Kinase Mb (01/13/23 17:51) Hs C Reactive Protein (01/13/23 17:51) Fibrin Degradation Products (01/13/23 17:51) Hcg,Qualitative Serum (01/13/23 17:51) Lipase (01/13/23 17:51) Magnesium (01/13/23 17:51) Protime With Inr (01/13/23 17:51) Partial Thromboplastin Time (01/13/23 17:51) Erythrocyte Sedimentation Rate (01/13/23 17:51) Myoglobin Serum (01/13/23 17:51) Troponin I Maryse (01/13/23 17:51) Chest 1 View, Ap/Pa Only (01/13/23 17:51) Nitroglycerin 0.4 Mg Btl 25's (Nitrostat (01/13/23 18:00) Aspirin Chewable Tablet (Baby Aspirin Ch (01/13/23 18:00) Pantoprazole Injection (Protonix Injecti (01/13/23 18:15) Ct Olga Chest/Noang Abd-Pelv W (01/13/23 18:31) Iohexol Injection (Omnipaque 350 Mg/Ml 1 (01/13/23 18:45) Received Contrast (Hold Metformin- Contr (01/13/23 18:45) Ns (Ivpb) (Sodium Chloride 0.9% Ivpb Bag (01/13/23 18:45) Ketorolac Injection (Toradol Injection) (01/13/23 19:30) Medications Given in ED Current Medications Medications Dose Ordered Sig/Nura Route Start Time Stop Time Status Last Admin Dose Admin Aspirin 324 mg ONCE ONCE PO 01/13/23 18:00 01/13/23 18:01 DC 01/13/23 18:00 324 MG Iohexol 100 ml ONCE ONCE IV 01/13/23 18:45 01/13/23 18:46 DC 01/13/23 18:49 88 ML Nitroglycerin 0.4 mg UD PRN SL 01/13/23 18:00 01/13/23 18:00 0.4 MG Pantoprazole 40 mg ONCE ONCE IV 01/13/23 18:15 01/13/23 18:16 DC 01/13/23 18:07 40 MG Sodium Chloride 100 ml ONCE ONCE IV 01/13/23 18:45 01/13/23 18:46 DC 01/13/23 18:49 80 ML Vital Signs/I&O 01/13/23 17:40 Temp 36.3 Pulse 104 Resp 18 B/P (MAP) 143/97 (112) Pulse Ox 95 O2 Delivery Room Air Blood Pressure Mean: 112 Progress Progress Note : Progress Note CHEST PAIN PROTOCOL INITIATED. GIVEN: -ASA -NTG -PROTONIX Initial ECG Impression Date: Jan 13, 2023 Initial ECG Impression Time: 17:46 Initial ECG Rate: 106 Initial ECG Rhythm: Normal Sinus Initial ECG Impression: Nonspecific Changes Diagnostic Imaging Comments CXR--PER RADIOLOGIST REPORT AT 1829 COMPARISON: Comparison is made with prior chest from 03/17/2018. FINDINGS: The heart size is normal. The pulmonary vascularity is unremarkable. The lungs are clear. No infiltrate, effusion or pneumothorax is detected. IMPRESSION: No acute cardiopulmonary process is detected. CT CHEST ANGIOGRAM / ABDOMEN-PELVIS--PER RADIOLOGIST REPORT AT [address] CT angiogram chest: Evaluation of pulmonary arterial system is without evidence of thromboembolism. No filling defects are seen within central, lobar or segmental branches. Thoracic aorta is normal in caliber. There is no dissection. There is no pericardial or pleural fluid. Peripheral evaluation does show some zones of linear atelectasis at the right middle lobe and lingula. Lungs are otherwise clear. IMPRESSION: No evidence of pulmonary embolism or acute aortic disease. CT abdomen and pelvis: Liver shows diffuse low attenuation consistent with hepatic steatosis. No liver mass is identified. Gallbladder is unremarkable. There is no biliary duct dilatation. Pancreas and spleen is unremarkable. No adrenal mass is identified. Kidneys are unremarkable. There is no hydronephrosis. Aorta is nonaneurysmal. Bowel loops are normal in caliber. There is no obstruction. Appendix is unremarkable. There is no ascites. The uterus appears to be surgically absent. Bladder is decompressed. IMPRESSION: 1. Hepatic steatosis. 2. No acute feature in the abdomen or pelvis is identified. Reviewed: Reviewed by Me Departure Impression Primary Impression: Chest wall pain Additional Impression: POSSIBLE GERD Disposition: HOME, SELF-CARE Condition: Improved Departure-Patient Inst. Decision time for Depature: 19:29 Referrals: [facility] (PCP/Family) Primary Care Physician Patient Instructions: Acid Reflux and GERD in Adults (DC), Chest Pain, Costochondritis Add. Discharge Instructions: CLEAR LIQUIDS--WATER, BROTH, JELLO, GATORADE NO COFFEE, POP OR TEA BLAND DIET--NO SPICY, GREASY / HIGH FAT OR FRIED FOODS, NO ACIDIC FOODS OR DRINKS SUCH CITRUS, TOMATOES, ETC. CONTINUE YOUR PRILOSEC TWICE A DAY FOLLOW UP WITH [facility] THIS WEEK FOR FURTHER CARE, CALL IN THE MORNING TO SCHEDULE AN APPOINTMENT RETURN TO ER IF YOUR SYMPTOMS WORSEN All discharge instructions reviewed with patient and/or family. Voiced understanding. Scripts Sucralfate (Carafate) 1 Gram Tablet 1 GM PO QID, #60 TAB Prov: TOMAS DACOSTA DO 01/13/23 Ketorolac Tromethamine (Ketorolac Tromethamine) 10 Mg Tablet 10 MG PO Q6H for Pain, #15 TAB Prov: TOMAS DACOSTA DO 01/13/23 TOMAS DACOSTA DO Jan 13, 2023 18:16
[2023-01-13 18:17] LABS: BUN/CREATININE RATIO 12
[2023-01-13 18:19] LABS: ALANINE AMINOTRANSFERASE 19 U/L (0-55); MAGNESIUM 1.7 MG/DL (1.6-2.4)
[2023-01-13 18:20] LABS: CREATINE KINASE 92 U/L (29-168); LIPASE 23 U/L (8-78)
[2023-01-13 18:22] LABS: FIBRIN DEGRADATION PRODUCTS 0.58 UG/ML (0.00-0.49); PROTHROMBIN TIME PATIENT 13.6 SEC (12.2-14.7)
--- NOTE | 2023-01-13 18:24 | Diagnostic Imaging Report ---
INDICATION: Chest pain. TIME OF EXAM: 06:02 p.m. COMPARISON: Comparison is made with prior chest from 03/17/2018. FINDINGS: The heart size is normal. The pulmonary vascularity is unremarkable. The lungs are clear. No infiltrate, effusion or pneumothorax is detected. IMPRESSION: No acute cardiopulmonary process is detected. Dictated by: Dictated on workstation # [id number]
[2023-01-13 18:26] LABS: ERYTHROCYTE SEDIMENTATION RATE 22 MM/HR (0-20)
[2023-01-13 18:27] LABS: CREATINE KINASE MB 0.7 NG/ML (<6.6)
[2023-01-13] MEDS ORDERED: HOLD METFORMIN - RECEIVED CONTRAST 20 ML VIAL IV SCH (18:45)
[2023-01-13] MEDS ORDERED: IOHEXOL 350 MG/ML 100 ML (OMNIPAQUE 350) VIAL IV ONE (18:45)
[2023-01-13] MEDS ORDERED: NS 100 ML (IVPB) BAG IV ONE (18:45)
--- NOTE | 2023-01-13 19:14 | Diagnostic Imaging Report ---
INDICATION: Chest pain and abdominal pain. CTA chest, abdomen and pelvis Thin axial sections through the chest, abdomen and pelvis are obtained following intravenous contrast bolus. Multiplanar MIP images were reconstructed and reviewed. All CT scans use one or more of the following dose optimizing techniques: automated exposure control, MA and/or KvP adjustment based on patient size and exam type or iterative reconstruction. CT angiogram chest: Evaluation of pulmonary arterial system is without evidence of thromboembolism. No filling defects are seen within central, lobar or segmental branches. Thoracic aorta is normal in caliber. There is no dissection. There is no pericardial or pleural fluid. Peripheral evaluation does show some zones of linear atelectasis at the right middle lobe and lingula. Lungs are otherwise clear. IMPRESSION: No evidence of pulmonary embolism or acute aortic disease. CT abdomen and pelvis: Liver shows diffuse low attenuation consistent with hepatic steatosis. No liver mass is identified. Gallbladder is unremarkable. There is no biliary duct dilatation. Pancreas and spleen is unremarkable. No adrenal mass is identified. Kidneys are unremarkable. There is no hydronephrosis. Aorta is nonaneurysmal. Bowel loops are normal in caliber. There is no obstruction. Appendix is unremarkable. There is no ascites. The uterus appears to be surgically absent. Bladder is decompressed. IMPRESSION: 1. Hepatic steatosis. 2. No acute feature in the abdomen or pelvis is identified. Dictated by: Dictated on workstation # [id number]
[2023-01-13] MEDS ORDERED: KETOROLAC 30 MG/ML VIAL IVP ONE (19:30)
[2023-01-13] MEDS ORDERED: KETO10TA PO (19:32)
[2023-01-13] MEDS ORDERED: SUCR1TAB36 PO (19:32)
[2023-01-13 19:57] VITALS: BP 135/84
== END 2023-01-13 20:00 | disposition home or self-care (01) ==
LOC: EDUNIT# 17:37 → ER 17:39
DX: R07.2 Precordial pain (principal); E66.9 Obesity, unspecified; F17.210 Nicotine dependence, cigarettes, uncomplicated; Z87.19 Personal history of other diseases of the digestive system; Z68.42 Body mass index [BMI] 45.0-49.9, adult; Z91.040 Latex allergy status; Z79.899 Other long term (current) drug therapy
CPT/HCPCS: 36415; 71045; 71275; 74177; 80053; 82150; 82550; 82553; 83690; 83735; 83874; 83880; 84484; 84703; 85025; 85379; 85610; 85652; 85730; 86141; 93005; 93041

== ENCOUNTER 2023-04-15 05:40 | Outpatient (CLI) | payer OTHER ==
[~2023-04-15] VITALS: Ht 170.2 cm; Wt 148.3 kg
[~2023-04-15 05:40] MED LIST changes: +KETO10TA PO; +SUCR1TAB36 PO
[2023-04-17] MEDS ORDERED: FLUO20CA48 PO (11:27)
[2023-04-17] MEDS ORDERED: BREX1TAB PO (11:27)
[2023-04-17] MEDS ORDERED: CETI10TA49 PO (11:27)
[2023-04-17] MEDS ORDERED: BUSP15TA60 PO (11:27)
[2023-04-17] MEDS ORDERED: LEVO25TA2 PO (11:27)
== END 2023-04-17 11:28 | disposition home or self-care (01) ==
LOC: PREOP 05:40
PROVIDERS: ATTEND Surgery
DX: Z01.818 Encounter for other preprocedural examination (principal)

== ENCOUNTER 2023-04-27 07:29 | Day surgery (SDC) | payer OTHER ==
[~2023-04-27] VITALS: Ht 170.2 cm; Wt 148.3 kg
[~2023-04-27 07:29] MED LIST changes: +BREX1TAB PO; +BUSP15TA60 PO; +CETI10TA49 PO; +FLUO20CA48 PO; +LEVO25TA2 PO
[2023-04-27] MEDS ORDERED: LACTATED RINGERS 1,000 ML IV STA (07:42)
[2023-04-27] MEDS ORDERED: HURRICAINE EXT TUBE (BENZOCAINE) XX PRN (07:45)
[2023-04-27 07:55] VITALS: BP 139/86
[2023-04-27] MEDS ORDERED: PROPOFOL INJECTION 50 ML IV ONE (08:39)
[2023-04-27] MEDS ORDERED: MIDAZOLAM 2 MG/2 ML (VERSED) VIAL ONE (08:39)
[2023-04-27 09:05] VITALS: BP 117/58
--- NOTE | 2023-04-27 09:08 | Progress Note-Post Operative ---
Post-Operative Progess Note Surgeon (s)/Needle Loom Operator Helper (s) Surgeon TK HERNANDEZ DO Needle Loom Operator Helper: Enrico Cronin, ZULEIKA Pre-Operative Diagnosis Chronic reflux, change in bowel habits Post-Operative Diagnosis Gastritis Int Hemorrhoids Procedure & Operative Findings Date of Procedure 04/27/23 Procedure Performed/Findings EGD with biopsy Colonoscopy PROCEDURE NOTE: After informed consent was obtained, the patient was brought to the endoscopy suite, placed in bed in left lateral decubitus position. She was administered IV sedation by the CLAIM ATTORNEY who then monitored vitals the entire time, heart rate, blood pressure and pulse ox and the scope was inserted down the mouth through the esophagus into the stomach. On the way down, noted some mild esophagitis, took a picture, pushed into the stomach, pushed past the antrum into the duodenum. Duodenum looked good. Pulled back, the antrum had moderate gastritis (almost a watermelon antrum) and did a biopsy of theantrum. Then retroflexed the scope, did not see a hiatal hernia, but did note more inflamation and did a biopsy of the body of the stomach. Then pulled the scope into the GE junction and then did a biopsy of the GE junction. Pushed the scope back into the stomach, suctioned all the air out of the stomach. At this point pulled the scope up the esophagus and out the mouth. Switched camera, switched gloves, went down below and started the colonoscopy. Pushed all the way to about 150 cm and pushed into the cecum, took a picture of appendiceal orifice and noted the ileocecal valve. Then slowly withdrew the scope insufflating to look circumferentially at the robert starting in the cecum, up the ascending colon to the hepatic flexure, then down the transverse colon, splenic flexure, into the descending colon down into the sigmoid colon and then into the rectal vault and retroflexed the scope. Took picture of the internal hemorrhoids. The patient tolerated the procedure and she recovered in the endoscopy suite. Recommended for repeat colonoscopy in 10 years Anesthesia Type IV sedation by CLAIM ATTORNEY Estimated Blood Loss Estimated blood loss (mL): scant Specimens/Packing Specimens Removed antral bx body of stomach bx GE jxn bx TK HERNANDEZ DO Apr 27, 2023 09:08
[2023-04-27 09:10] VITALS: BP 121/65
--- NOTE | 2023-04-27 09:10 | Endoscopy Discharge Instruct ---
Endo Procedure/Findings Findings 1.: Gastritis 2.: Internal Hemorrhoids Discharge Instructions - Activity: You might feel a little sleepy until tomorrow. This is due to the medicine you received to relax you. Until tomorrow, you should: NOT drive a car, operate machinery or power tools. NOT drink any alcoholic beverages. NOT make any important decisions or sign importortant papers. Do not return to work until tomorrow, unless otherwise instructed. Resume previous activities tomorrow. Diet: Start by taking liquids. If you tolerate liquids, advance to solid food. 1.: EGD in 3 years 2.: Colonscopy in 10 years Notify Physician - If you experience excessive bleeding, unusual abdominal pain, fever, or chest pain, contact your doctor immediately. Follow-Up: Other Follow up in my office in one week TK HERNANDEZ DO Apr 27, 2023 09:10
--- NOTE | 2023-04-27 09:43 | Anesthesia-General Post-Op ---
MAC Patient Condition Mental Status/LOC: Same as Preop Cardiovascular: Satisfactory Nausea/Vomiting: Absent Respiratory: Satisfactory Pain: Controlled Complications: Absent Post Op Complications Complications None Follow Up Care/Instructions Patient Instructions None needed. Anesthesiology Discharge Order Discharge Order Patient is doing well, no complaints, stable vital signs, no apparent adverse anesthesia problems. No complications reported per nursing. SHRUTHI CHILDRESS MANAGER CREDIT RISK Apr 27, 2023 09:43
[2023-04-27 09:55] VITALS: BP 121/65
== END 2023-04-27 09:55 | disposition home or self-care (01) ==
LOC: ENDO 07:29
PROVIDERS: ATTEND Surgery
DX: K21.00 Gastro-esophageal reflux disease with esophagitis, without bleeding (principal); K29.50 Unspecified chronic gastritis without bleeding; K31.89 Other diseases of stomach and duodenum; K64.8 Other hemorrhoids; E66.01 Morbid (severe) obesity due to excess calories; Z68.43 Body mass index [BMI] 50.0-59.9, adult; Z87.891 Personal history of nicotine dependence; Z80.0 Family history of malignant neoplasm of digestive organs; Z28.310 Unvaccinated for COVID-19